=== PATIENT | female | born 1990 | race American Indian/Alaskan Native ===

== ENCOUNTER 2016-10-30 15:03 | Inpatient (IN) | payer OTHER ==
[~2016-10-30] VITALS: Ht 157.5 cm; Wt 75.1 kg
[2016-10-30 16:12] LABS: MEAN CORPUSCULAR HEMOGLOBIN 28.5 pg (27.0-33.0); MEAN CORPUSCULAR HGB CONC 33.9 g/dl (32.0-36.5); RED CELL DISTRIBUTION WIDTH 12.2 % (11.5-14.5); WHITE BLOOD COUNT 8.5 K/mm3 (4.0-10.0)
[2016-10-30 16:15] LABS: AMPHETAMINES LEVEL URINE NEGATIVE (NEGATIVE); BENZODIAZEPINES URINE NEGATIVE (NEGATIVE); COCAINE METABOLITE URINE NEGATIVE (NEGATIVE); CONTROL LINE INT CTR LINE PRESENT; METHADONE URINE NEGATIVE (NEGATIVE); OPIATES URINE NEGATIVE (NEGATIVE); TRICYCLIC ANTIDEPRESS URINE NEGATIVE (NEGATIVE)
[2016-10-30 16:29] LABS: CONTROL LINE HCG INT CTR LINE PRESENT
[2016-10-30 16:40] LABS: ALBUMIN/GLOBULIN RATIO 1.08 (1.00-1.93); ALKALINE PHOSPHATASE 93 U/L (45-117); ALT/SGPT 76 U/L (12-78); ANION GAP 7 MEQ/L (8-16); AST/SGOT 28 U/L (15-37); BILIRUBIN,DIRECT < 0.1 MG/DL (0.0-0.2); BILIRUBIN,TOTAL 0.3 MG/DL (0.2-1.0); BLOOD UREA NITROGEN 10 MG/DL (7-18); CALCIUM LEVEL 8.1 MG/DL (8.5-10.1); CARBON DIOXIDE LEVEL 29 MEQ/L (21-32); CHLORIDE LEVEL 103 MEQ/L (98-107); CREATININE FOR GFR 0.62 MG/DL (0.55-1.02); GLOMERULAR FILTRATION RATE > 60.0 (>60); GLUCOSE, FASTING 93 MG/DL (70-105); POTASSIUM SERUM 4.2 MEQ/L (3.5-5.1); SODIUM LEVEL 139 MEQ/L (136-145); TOTAL PROTEIN 7.7 GM/DL (6.4-8.2)
--- NOTE | 2016-10-31 00:41 | EDDOCDS ---
Physician Documentation [facility] Name: Carola Parekh Age: 26 yrs Sex: Female : 1990 Arrival Date: 10/30/2016 Time: 15:03 Bed OBSERVATION Private MD: Disposition: 10/30/16 21:18 Hospitalization ordered by Santos Rouse for Inpatient Admission. Preliminary diagnosis is Major depressive disorder, recurrent. - Bed requested for Admit. - Status is Inpatient Admission. ld5 - Condition is Stable. - Problem is an ongoing problem. - Symptoms are unchanged. HPI: 10/30 15:23 This 26 yrs old Female presents to ER via Walkin/Carried/Asstd with complaints of Psych Problem. 15:23 The history is obtained from the patient, transfer records. The patient presents to the emergency department with suicidal ideation, depression. At their worst, the symptoms were moderate. In the emergency department, the symptoms are mild. She has been having a hard time dealing with a friend's , who recently committed suicide. She was seen at [facility] and admitted to [facility] and was sent here for evaluation. She is very upset and is wanting to leave the ED. She admits to depression and [facility] no [facility] and does not want to . The patient has not experienced similar symptoms in the past. The patient has not recently seen a physician. Historical: - Allergies: no known allergies; - Home Meds: 1. none - PMHx: none; - PSHx: none; - The history from nurses notes was reviewed: and I agree with what is documented. - Social history: Smoking status: Patient states was never smoker of tobacco. No barriers to communication noted, The patient speaks fluent [place]. - : The pt / caregiver states he / she is not on anticoagulants. Home medication list is obtained from the patient. - Hospitalizations: : No recent hospitalization is reported. - Exposure Risk Screening:: None identified. - Immunization history:: All immunizations up-to-date. - Family history: Not pertinent. - Social history:: the patient is a non-smoker, the patient drinks alcohol, socially. 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 The psychiatric and neurological components pc are also addressed in the HPI. Exam: 15:23 General Appearance: alert, no acute distress. pc 15:23 ENT: ear, nose and throat normal, pharynx normal. 15:23 Eyes: pupils equal, round and reactive to light, extraocular motions intact. 15:23 Neck: The exam reveals no acute abnormalities. ROM is normal and painless. No nuchal rigidity is noted.. 15:23 Respiratory: breathing is even and unlabored, breath sounds are normal. 15:23 Cardiovascular: regular pulse rate, regular heart rhythm, normal heart sounds, equal and full pulses bilaterally. 15:23 Abdomen: soft, non-tender, no organomegaly, normal bowel sounds. 15:23 Skin: skin color is normal, warm, dry. 15:23 Extremities: The extremities have a grossly normal appearance, are non-tender, without acute ROM abnormalities. 15:23 Neuro: alert, oriented to person, place and time, cranial nerves normal as tested, no motor deficits, no sensory deficits. 15:23 Psych: mood is depressed, angry, affect is flat. Vital Signs: 15:08 BP 128 / 89; Pulse 87; Resp 18; Temp 96.8; Pulse Ox 98% on R/A; Weight 69.85 kg / mk4 153.99 lbs; Height 5 ft. 2 in. (157.48 cm); 18:48 BP 147 / 89; Pulse 78; Resp 18; Temp 97.7(O); Pulse Ox 99% on R/A; nb2 10/31 00:38 BP 121 / 67; Pulse 89; Resp 16; Temp 96.9; Pulse Ox 100% on R/A; Pain 0/10; ld5 10/30 15:08 Body Mass Index 28.17 (69.85 kg, 157.48 cm) mk4 MDM: 10/30 15:23 Consult PFS/PSA/[employer] Ax Consultant: Patient's case requires discussion with on-call pc Psychiatrist ordered. 15:23 PSA/PFS to call Nursing Lead Javascript Engineer, to enter patient data on [place] Safe Act if patient pc involuntarily admitted or transferred for SI or HI ordered. 15:23 Confirm accurate psychiatric medication list and times of last dosage ordered. pc 15:23 Detain Pt Until Medically/PFS Cleared ordered. pc 15:23 Differential diagnosis: depression, suicidal ideation, adjustment disorder. Plan: labs, pc PFS eval. 15:24 Acetaminophen Level Ordered. EDMS 15:24 Basic Metabolic Profile Ordered. EDMS 15:24 Complete Blood Count Ordered. EDMS 15:24 Drug Eval Toxicology ED Only Ordered. EDMS 15:24 Ethyl Alcohol (ethanol) Ordered. EDMS 15:24 HCG,Serum Qualitative Ordered. EDMS 15:24 Liver Profile Ordered. EDMS 15:24 Salicylate Level Ordered. EDMS 15:24 Thyroid Stimulating Hormone Ordered. EDMS 16:49 Acetaminophen Level Reviewed. pc 16:49 Basic Metabolic Profile Reviewed. pc 16:49 Ethyl Alcohol (ethanol) Reviewed. pc 16:49 Liver Profile Reviewed. pc 16:49 Salicylate Level Reviewed. pc 16:50 Thyroid Stimulating Hormone Reviewed. pc 16:50 Complete Blood Count Reviewed. pc 16:50 Drug Eval Toxicology ED Only Reviewed. pc 16:50 HCG,Serum Qualitative Reviewed. pc 17:15 Acetaminophen Level Reviewed. pc 17:15 Basic Metabolic Profile Reviewed. pc 17:15 Salicylate Level Reviewed. pc 17:15 Ethyl Alcohol (ethanol) Reviewed. pc 17:15 HCG,Serum Qualitative Reviewed. pc 17:15 Liver Profile Reviewed. pc 17:15 Thyroid Stimulating Hormone Reviewed. pc 17:17 REGULAR DIET PLASTIC JUÁREZ+DIET ordered. EDMS 18:08 Financial registration complete. gjb 18:18 [facility] [place] was scanned into [employer] and attached to record. gjb 20:14 Consult PFS/PSA/[employer] Consultant: Patient's case requires discussion with on-call jfb Psychiatrist complete. 20:14 PSA/PFS to call Nursing Lead Javascript Engineer, to enter patient data on [place] Safe Act if patient jfb involuntarily admitted or transferred for SI or HI complete. 20:40 Admit to [facility]: ordered. EDMS 21:11 [facility] Legal paperwork was scanned into [employer] and attached to record. rb 21:19 BED REQUEST+ADM ordered. EDMS Signatures: Dispatcher [employer] EDMS Armaan Higgins MD MD pc Baxter, Renee, PSA PSA rb Maria Guadalupe Stewart PSA PSA jfb Ariane Farias,RN RN ld5 Kadeem Randall DO DO cs11 Gina Nava RN RN [email or web address] Ariella Ferrera The chart was reviewed and I authenticate all verbal orders and agree with the evaluation and treatment provided.Attachments: 18:18 [facility] [place] gjb MTDD
--- NOTE | 2016-10-31 00:41 | EDDOCDS ---
Nurse's Notes [facility] Name: Carola Parekh Age: 26 yrs Sex: Female : 1990 Arrival Date: 10/30/2016 Time: 15:03 Bed OBSERVATION Private MD: Diagnosis: Major depressive disorder, recurrent Presentation: 10/30 15:05 Presenting complaint: Patient states: pt sent from [facility] for evaluation of mk4 very bad depression and suicidal thoughts.. recent suicide of very good friend 2 weeks ago which exacerbated this. Mental Health Triage Level: Level 2: The patient displays active suicidal ideations. Adult Sepsis Screening: The patient does not have new or worsening altered mentation. Patient's respiratory rate is less than 22. Systolic blood pressure is greater than 100. Patient has a qSOFA score of 0- Negative Sepsis Screen. Suicide/Homicide risk assessment- The patient admits to and/or has been reported to be having suicidal ideations. The patient reports that he/she has not been admitted to an inpatient mental health facility in the last 30 days. The patient reports that he/she does not have a recent or current history of substance abuse. The patient reports that he/she has no prior history of suicide attempt and/or organized plan. The patient reports that he/she has experienced a significant life altering event in the last 30 days. The patient reports that he/she has adequate social support. The patient reports he/she has no significant chronic medical condition(s). 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 Transition of care: patient was not received from another setting of care. 15:05 Acuity: AGUSTINA Level 3 mk4 15:05 Method Of Arrival: Walkin/Carried/Asstd mk4 Triage Assessment: 15:08 General: Appears distressed, Behavior is flat. Pain: Denies pain. HIV screening NA for mk4 this visit Offered previously. 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 none - PMHx: none; - PSHx: none; - The history from nurses notes was reviewed: and I agree with what is documented. - Social history: Smoking status: Patient states was never smoker of tobacco. No barriers to communication noted, The patient speaks fluent Bruneian. - : The pt / caregiver states he / she is not on anticoagulants. Home medication list is obtained from the patient. - Hospitalizations: : No recent hospitalization is reported. - Exposure Risk Screening:: None identified. - Immunization history:: All immunizations up-to-date. - Family history: Not pertinent. - Social history:: the patient is a non-smoker, the patient drinks alcohol, socially. Screenin:36 Screening information is obtained from the patient. Fall risk: No risks identified. ttb Assistance ADL's: requires no assistance with activities of daily living. Abuse/DV Screen: The patient / caregiver reports he/she is: not in a situation that causes fear, pain or injury. Nutritional screening: No deficits noted. Advance Directives: Currently, there is no health care proxy. home support is adequate. Assessment: 15:11 General: Appears distressed, Behavior is anxious, flat. Pain: Denies pain. mk4 Neurological: Level of Consciousness is awake, alert, Oriented to person, place, time. Respiratory: Airway is patent Respiratory effort is even. Derm: Skin. 15:57 General: Appears in no apparent distress, Behavior is cooperative, quiet. General: dwg Awake and alert, calm and cooperative.. Pain: Denies pain. Neurological: Level of Consciousness is awake, alert, Oriented to person, place, time. 16:36 General: Appears in no apparent distress, comfortable, Behavior is quiet. General: ttb chain of command at bedside. . Neurological: Level of Consciousness is awake, alert. Respiratory: Airway is patent Respiratory effort is even, unlabored, Respiratory pattern is regular, symmetrical. Derm: Skin is normal. 17:30 General: Appears in no apparent distress, to be sleeping. ttb 17:30 Respiratory: Airway is patent. ttb 18:30 Reassessment: Patient appears in no apparent distress at this time. pt tolerated ttb dinner. Resting in room.. 19:01 General: report given to WILLIAMS Young at this time.. ttb 20:00 General: Appears in no apparent distress, comfortable, Behavior is appropriate for age, rw1 cooperative, quiet. Pain: Denies pain. Neurological: Level of Consciousness is awake, alert, obeys commands, Oriented to person, place, time. Respiratory: Airway is patent Respiratory effort is even, unlabored. Derm: Skin is normal. 21:01 Reassessment: Patient appears in no apparent distress at this time. resting quietly on rw1 stretcher, safety maintained will monitor.. 10/31 00:38 General: Appears in no apparent distress, Behavior is appropriate for age, cooperative. ld5 Pain: Denies pain. Neurological: Level of Consciousness is awake, obeys commands. Respiratory: Airway is patent Respiratory effort is even, unlabored. 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 [facility] Behavioral Health: The patient is not an established patient of [facility] Behavioral Health. Referral Information: Evaluation referral is generated by PT's Chain of Command. 20:34 Referral Information: The patient was referred for evaluation because PT +depression jfb with SI. Subjective: The patients chief complaint is PT states she is experiencing "crushing depression" currently with vague SI, no plan. PT's co worker and good friend killed himself over a month ago and she is having a difficult time with her grieving. PT also had a one night stand a few weeks ago and then she took several test and believed she was . Last night she repeated the tests and now feels she has miscarried. PT feels that she is treated in a bad way by her VIPIN and today he had her remove all of her things from her room, buff her floors and then put everything back in place and "I snapped" meaning she started screaming and crying and demanded to speak with the Alana. PT's Alana spent time with PT and then he brought her to be seen as a walk in at [facility] who in turn sent her here for MHE. PT denies she made any direct statements of self harm but admits to sharing that she has had thoughts "I can't take it anymore. I'm tired and don't want to do this anymore" Per the Alana who arrived to support PT he has known her since [place] and she has always struggled with managing her depression and he is concerned that she believed she was and lost the baby. Alana has discussed admission with PT and he is a buffer between her and the VIPIN who is also present and states he has no idea what he has done to upset PT so much. PT tearful and unable to CFS with confidence. . Delusions are denied. Patient's mood is depressed, Hallucinations are denied. Mental Health history: depression, suicide at age 16 PT sat with a knife and thought about cutting her wrists Mental Health Admissions: None. Current Outpatient Mental Health Services: Therapist / Agency: [facility] Dr. Gar. Current living environment is The patient currently lives in a [employer] [facility]. Patient presents to Emergency Department with the following symptoms within the past 2 weeks: increased appetite, depressed mood, feelings of helplessness/hopelessness, poor concentration, sleep disturbance - erratic suicidal ideation with no plan. Substance abuse: Pt denies. Mental status exam: Patients appearance is appropriate, Patient's behavior is cooperative, Speech is normal. Affect is flat. Mood is depressed. Hallucinations are denied. Appetite is characterized by binges. Memory is good. Energy level is normal. Content of thought is depressed Thought process is intact. Cognitive level is oriented to person, place, time and situation Patient's insight is fair. Judgement is fair. Rapport with interviewer is good. Suicidal Ideation is present with no specific plan. Homicidal ideation is not present. Disposition: Medically cleared for disposition by Kadeem Randall DO Psychiatric Consult is performed by phone with Dr Santos Rouse. [facility] Admission Criteria: The patient is experiencing suicidal ideation. The patient requires continuous observation and/or control to protect self, others or property. The patient's care requires a multi-modal treatment plan under close supervision and coordination due to the complexity and severity of the patient's symptoms. Legal Status: Patient's legal status will be Emergency admission: 939. DSM-V Differential Diagnosis: Unspecified Depressive Disorder (F32.9). Insurance Pre-Certification: Not Required, . Awaiting: transfer to [facility]. Vital Signs: 15:08 BP 128 / 89; Pulse 87; Resp 18; Temp 96.8; Pulse Ox 98% on R/A; Weight 69.85 kg; Height mk4 5 ft. 2 in. (157.48 cm); 18:48 BP 147 / 89; Pulse 78; Resp 18; Temp 97.7(O); Pulse Ox 99% on R/A; nb2 10/31 00:38 BP 121 / 67; Pulse 89; Resp 16; Temp 96.9; Pulse Ox 100% on R/A; Pain 0/10; ld5 10/30 15:08 Body Mass Index 28.17 (69.85 kg, 157.48 cm) mk4 ED Course: 10/30 15:04 Patient visited by Melida Haider, Reg. lg 15:04 Patient moved to [facility] lg 15:05 Armaan Higgins MD is Attending Physician. pc 15:05 Patient [address] 15:08 Triage Initiated 4 15:20 Patient has correct armband on for positive identification. Placed in gown. Placed in tmm1 psych safe attire. Bed in low position. Side rails up X 1. Security observing. Property removed, inventory done, secured in belongings bag- placed in locked locker. Door closed. Noise minimized. Visitors limited. Psych Safety Check: Location: Psych Room. Visual Assessment: Cooperative. 15:23 Patient visited by Armaan Higgins MD. pc 15:30 Psych Safety Check: Location: Psych Room. Visual Assessment: Cooperative. tmm1 15:45 Psych Safety Check: Location: Psych Room. Visual Assessment: Cooperative. tmm1 15:56 Acetaminophen Level Sent. dwg 15:56 Basic Metabolic Profile Sent. dwg 15:57 Complete Blood Count Sent. dwg 15:57 Drug Eval Toxicology ED Only Sent. dwg 15:57 Ethyl Alcohol (ethanol) Sent. dwg 15:57 HCG,Serum Qualitative Sent. dwg 15:57 Liver Profile Sent. dwg 15:57 Salicylate Level Sent. dwg 15:57 Thyroid Stimulating Hormone Sent. dwg 15:58 Patient visited by Paul Perez RN. dwg 16:00 Psych Safety Check: Location: Psych Room. Visual Assessment: Cooperative. tmm1 16:15 Psych Safety Check: Location: Psych Room. Visual Assessment: Cooperative. tmm1 16:30 Psych Safety Check: Location: Psych Room. Visual Assessment: Cooperative. tmm1 16:35 Patient visited by Ellie Zimmer RN. ttb 16:36 The patient / caregiver is instructed regarding the plan of care and ED course. ttb Accompanied by VIPIN, Patient has correct armband on for positive identification. Placed in psych safe attire. Security observing. 16:36 No IV's were initiated during this patient's visit. No procedures done that require ttb assistance. Labs drawn. (by ED staff). Urine collected. Clean catch specimen. 16:37 Patient visited by Ellie Zimmer RN. ttb 16:45 Psych Safety Check: Location: Psych Room. Visual Assessment: Cooperative. tmm1 17:00 Psych Safety Check: Location: Psych Room. Visual Assessment: Cooperative. tmm1 17:15 Psych Safety Check: Location: Medical Room. Visual Assessment: Cooperative. tmm1 17:16 Patient visited by Ellie Zimmer RN. ttb 17:30 Psych Safety Check: Location: Psych Room. Visual Assessment:. tmm1 17:30 Security observing. ttb 17:39 Patient visited by Mima Rosales PCA. tmm1 17:45 Psych Safety Check: Location: Psych Room. Visual Assessment: Cooperative. tmm1 17:57 Patient visited by Mima Rosales PCA. tmm1 18:00 Psych Safety Check: Location: Psych Room. Visual Assessment: Cooperative. tmm1 18:14 Psych Safety Check: Location: Psych Room. Visual Assessment: Cooperative. tmm1 18:15 Patient visited by Mima Rosales PCA. tmm1 18:18 [facility] Payment Agreement was scanned into [employer] the [employer] and attached to record. gjb 18:30 Psych Safety Check: Location: Psych Room. Visual Assessment: Cooperative. tmm1 18:30 Security observing. ttb 18:36 Patient visited by Mima Rosales PCA. tmm1 18:45 Psych Safety Check: Location: Psych Room. Visual Assessment: Cooperative. tmm1 18:48 Patient visited by Kelsi Sal. nb2 18:58 Attending Physician role handed off by Armaan Higgins MD cs11 18:58 Kadeem Randall DO is Attending Physician. cs11 18:58 Santiago Howard LPN is Primary Nurse. rw1 18:58 Patient moved to OBSERVATION cs11 19:01 Patient visited by Mima Rosales PCA. tmm1 19:01 Psych Safety Check: Location: Psych Room. Visual Assessment: Cooperative. tmm1 19:15 Psych Safety Check: Location: Psych Room. Visual Assessment: Cooperative. tmm1 19:32 Psych Safety Check: Location: Psych Room. Visual Assessment: Cooperative. tmm1 19:46 Psych Safety Check: Location: Psych Room. Visual Assessment: Cooperative. tmm1 20:03 Psych Safety Check: Location: Psych Room. Visual Assessment: Cooperative. tmm1 20:05 Psych Safety Check: Location:. tmm1 20:30 Psych Safety Check: Location: Psych Room. Visual Assessment: Cooperative. tmm1 20:40 Patient visited by Santiago Howard LPN. rw1 20:45 Psych Safety Check: Location: Psych Room. Visual Assessment: Cooperative. tmm1 21:00 Psych Safety Check: Location: Psych Room. Visual Assessment: Cooperative. tmm1 21:02 Patient visited by Santiago Howard LPN. rw1 21:11 [facility] Legal paperwork was scanned into [employer] the [employer] and attached to record. rb 21:15 Psych Safety Check: Location: Psych Room. Visual Assessment: Cooperative. tmm1 21:16 Patient visited by Santiago Howard LPN. rw1 21:17 Santos Rouse is Hospitalizing Provider. cs11 21:30 Psych Safety Check: Location: Psych Room. Visual Assessment: Cooperative. tmm1 21:45 Psych Safety Check: Location: Psych Room. Visual Assessment: Cooperative. tmm1 21:59 Psych Safety Check: Location: Psych Room. Visual Assessment: Cooperative. tmm1 22:15 Psych Safety Check: Location: Psych Room. Visual Assessment: Cooperative. tmm1 22:30 Psych Safety Check: Location: Psych Room. Visual Assessment: Cooperative. tmm1 22:44 Psych Safety Check: Location: Psych Room. Visual Assessment: Cooperative. tmm1 22:52 Psych Safety Check: Location: Psych Room. Visual Assessment: Cooperative. tmm1 23:00 Psych Safety Check: Location: Psych Room. Visual Assessment: Cooperative. tr 23:16 Patient visited by Mychal Gamez. tr 23:49 Patient visited by Mychal Gamez. tr 10/31 00:03 Patient visited by Mychal Gamez. tr 00:14 Patient visited by Mychal Gamez. tr 00:33 Patient visited by Mychal Gamez. tr 00:40 Patient visited by Ariane Farias RN. ld5 Attachments: 21:11 [facility] Legal paperwork rb Order Results: Lab Order: Acetaminophen Level; SPEC'M 10/30/16 15:51 Test: ACETAMINOPHEN LEVEL; Value: < 2.0; Range: 10.0-30.0; Abnormal: Below low normal; Units: UG/ML; Status: F Lab Order: Basic Metabolic Profile; SPEC'M 10/30/16 15:51 Test: GLUCOSE, FASTING; Value: 93; Range: 70-105; Units: MG/DL; Status: F Test: BLOOD UREA NITROGEN; Value: 10; Range: 7-18; Units: MG/DL; Status: F Test: CREATININE FOR GFR; Value: 0.62; Range: 0.55-1.02; Units: MG/DL; Status: F Test: SODIUM LEVEL; Range: 136-145; Units: MEQ/L; Status: I Test: POTASSIUM SERUM; Range: 3.5-5.1; Units: MEQ/L; Status: I Test: CHLORIDE LEVEL; Range: 98-107; Units: MEQ/L; Status: I Test: CARBON DIOXIDE LEVEL; Range: 21-32; Units: MEQ/L; Status: I Test: ANION GAP; Range: 8-16; Units: MEQ/L; Status: I Test: CALCIUM LEVEL; Range: 8.5-10.1; Units: MG/DL; Status: I Test: GLOMERULAR FILTRATION RATE; Value: > 60.0; Range: >60; Status: F Test: SODIUM LEVEL; Value: 139; Range: 136-145; Units: MEQ/L; Status: F Test: POTASSIUM SERUM; Value: 4.2; Range: 3.5-5.1; Units: MEQ/L; Status: F Test: CHLORIDE LEVEL; Value: 103; Range: 98-107; Units: MEQ/L; Status: F Test: CARBON DIOXIDE LEVEL; Value: 29; Range: 21-32; Units: MEQ/L; Status: F Test: ANION GAP; Value: 7; Range: 8-16; Abnormal: Below low normal; Units: MEQ/L; Status: F Test: CALCIUM LEVEL; Value: 8.1; Range: 8.5-10.1; Abnormal: Below low normal; Units: MG/DL; Status: F Test Note: ; Units are mL/min/1.73 m2 Chronic Kidney Disease Staging per NKF: Stage I & II GFR >=60 Normal to Mildly Decreased Stage III GFR 30-59 Moderately Decreased Stage IV GFR 15-29 Severely Decreased Stage V GFR <15 Very Little GFR Left ESRD GFR <15 on DUST COLLECTOR Lab Order: Complete Blood Count; SPEC'M 10/30/16 15:51 Test: WHITE BLOOD COUNT; Value: 8.5; Range: 4.0-10.0; Units: K/mm3; Status: F Test: RED BLOOD COUNT; Value: 4.97; Range: 4.00-5.40; Units: M/mm3; Status: F Test: HEMOGLOBIN; Value: 14.2; Range: 12.0-16.0; Units: g/dl; Status: F Test: HEMATOCRIT; Value: 41.8; Range: 36.0-47.0; Units: %; Status: F Test: MEAN CORPUSCULAR VOLUME; Value: 84.0; Range: 80.0-96.0; Units: fl; Status: F Test: MEAN CORPUSCULAR HEMOGLOBIN; Value: 28.5; Range: 27.0-33.0; Units: pg; Status: F Test: MEAN CORPUSCULAR HGB CONC; Value: 33.9; Range: 32.0-36.5; Units: g/dl; Status: F Test: RED CELL DISTRIBUTION WIDTH; Value: 12.2; Range: 11.5-14.5; Units: %; Status: F Test: PLATELET COUNT, AUTOMATED; Value: 318; Range: 150-450; Units: k/mm3; Status: F Lab Order: Drug Eval Toxicology ED Only; SPEC'M 10/30/16 15:51 Test: AMPHETAMINES LEVEL URINE; Value: NEGATIVE; Range: NEGATIVE; Status: F Test: BARBITURATES URINE; Value: NEGATIVE; Range: NEGATIVE; Status: F Test: BENZODIAZEPINES URINE; Value: NEGATIVE; Range: NEGATIVE; Status: F Test: CANNABINOIDS URINE; Value: NEGATIVE; Range: NEGATIVE; Status: F Test: COCAINE METABOLITE URINE; Value: NEGATIVE; Range: NEGATIVE; Status: F Test: METHADONE URINE; Value: NEGATIVE; Range: NEGATIVE; Status: F Test: OPIATES URINE; Value: NEGATIVE; Range: NEGATIVE; Status: F Test: TRICYCLIC ANTIDEPRESS URINE; Value: NEGATIVE; Range: NEGATIVE; Status: F Test Note: ; ALL PRESUMPTIVE POSITIVE FINDINGS ARE UNCONFIRMED NORMAL VALUES THRESHOLD IN NG/ML AMPHETAMINES 1000 METHAMPHETAMINES 1000 BARBITURATES 300 BENZODIAZEPINES 300 CANNABINOIDS (THC) 50 COCAINE METABOLITE 300 METHADONE 300 OPIATES 300 PHENCYCLIDINE 25 TRICYCLIC ANTIDEPRESSANTS 1000 RESULTS ARE FOR MEDICAL PURPOSES ONLY. ALL URINE SPECIMENS WILL BE SAVED FOR 3 DAYS. IF CONFIRMATION OF A PRESUMPTIVE POSTIVE SCREEN RESULT IS DESIRED, CALL CHEMISTRY ([phone]) AND REQUEST URINE TO BE SENT TO REFERENCE LAB. FOR A LIST OF CLOSELY RELATED COMPOUNDS PLEASE CALL THE LAB. Lab Order: Ethyl Alcohol (ethanol); SPEC'M 10/30/16 15:51 Test: ETHYL ALCOHOL (ETHANOL); Value: < 0.003; Range: 0.000-0.010; Units: %; Status: F Lab Order: HCG,Serum Qualitative; SPEC'M 10/30/16 15:51 Test: HCG, SERUM QUALITATIVE; Value: NEGATIVE; Range: NEGATIVE; Status: F Lab Order: Liver Profile; SPEC' 10/30/16 15:51 Test: AST/SGOT; Value: 28; Range: 15-37; Units: U/L; Status: F Test: ALT/SGPT; Value: 76; Range: 12-78; Units: U/L; Status: F Test: ALKALINE PHOSPHATASE; Value: 93; Range: 45-117; Units: U/L; Status: F Test: BILIRUBIN,TOTAL; Value: 0.3; Range: 0.2-1.0; Units: MG/DL; Status: F Test: BILIRUBIN,DIRECT; Value: < 0.1; Range: 0.0-0.2; Units: MG/DL; Status: F Test: TOTAL PROTEIN; Value: 7.7; Range: 6.4-8.2; Units: GM/DL; Status: F Test: ALBUMIN; Value: 4.0; Range: 3.2-5.2; Units: GM/DL; Status: F Test: ALBUMIN/GLOBULIN RATIO; Value: 1.08; Range: 1.00-1.93; Status: F Lab Order: Salicylate Level; SPEC' 10/30/16 15:51 Test: SALICYLATE LEVEL; Value: < 1.7; Range: 5.0-30.0; Abnormal: Below low normal; Units: MG/DL; Status: F Lab Order: Thyroid Stimulating Hormone; SPEC' 10/30/16 15:51 Test: THYROID STIMULATING HORMONE; Value: 1.350; Range: 0.358-3.740; Units: uIU/ML; Status: F Outcome: 21:18 Decision to Hospitalize by Provider. cs11 10/31 00:38 Discharge Assessment: Patient awake, alert and oriented x 3. No cognitive and/or ld5 functional deficits noted. Patient verbalized understanding of disposition instructions. Patient patient administered narcotics - no. The following High Risk Discharge criteria are identified: Yes, [facility] admission. Admitted to Psych accompanied by tech, via wheelchair, with chart. Condition: stable. No special radiology studies were completed. 00:40 Patient left the ED. ld5 Signatures: Armaan Higgins MD MD pc Greene, Daniel, RN RN dwg Adonis, Aury, PSA PSA rb Melida Haider, Reg Reg lg Gamez, Mychal tr Lee,Santiago,ALINING INSPECTOR ALINING INSPECTOR rw1 Maria Guadalupe Stewart, PSA PSA Ariane Siddiqui,RN RN ld5 Kadeem Randall, DO cs11 Ellie Zimmer RN RN ttb Connie, Mima, PALEOLOGY PROFESSOR PALEOLOGY PROFESSOR tmm1 Gina Nava, RN RN mk4 Ariella Ferrera Nicole nb2 MTDD
[2016-10-31 00:51] VITALS: BP 134/95
[2016-10-31] MEDS ORDERED: ACETAMINOPHEN TAB 650MG DOSE (2X325MG) PO PRN (02:45)
[2016-10-31] MEDS ORDERED: LORazepam 1 MG TAB PO PRN (02:45)
[2016-10-31] MEDS ORDERED: MAALOX 30 ML SUSP *UDC PO PRN (02:45)
[2016-10-31] MEDS ORDERED: MOM 30ML SUSPENSION UDC PO PRN (02:45)
--- NOTE | 2016-10-31 11:50 | HPEPDOC ---
Medical History and Physical Date of Admission Oct 31, 2016 at 00:47 History and Physical PCP: [facility] ATTENDING: Dr. Silas Haque HPI: 26yoF admitted to [facility] for MDD, being medically examined today. No acute medical complaints today. Denies any fevers, chills, weakness, fatigue, RASMUSSEN, CP, SOB, cough, palpitations, abdominal pain, N/V/D or changes in bowel or bladder habits. 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 ROS: As noted in HPI, otherwise 11pt ROS of systems reviewed and remarkable only for LMP 10/05/16 PE: GEN: 26 yoF, appears stated age. Well-nourished, well developed. No acute distress. Alert and oriented x 3. Pleasant, interactive. HEENT: Normocephalic, atraumatic. Pupils are equal, round, and reactive to light. Extraocular movements are intact. No nystagmus appreciated. Sclera are nonicteric. Conjunctiva without injection. Nose midline. Nasal turbinates without bogginess. EACs both patent BL. TMs both visualized and harrison with good cone of light, no bulging or erythema. No facial asymmetry. Moist mucous membranes. Dentition fair. Pharynx pink and moist, no cobblestoning. Neck supple , trachea midline. No lymphadenopathy or thyromegaly appreciated. CHEST: Regular rate and rhythm, +S1, +S2 LUNGS: Clear to auscultation bilaterally. No wheezes, rales, or rhonchi. Breathing appears symmetric and easy. Patient is speaking in full sentences. No accessory muscle use. ABD: Round, soft, non-tender, non-distended. +Bowel sounds throughout. No rebound or guarding. No costovertebral angle tenderness. EXT: Pulses 2+ bilaterally dorsalis pedis and radial. No lower extremity edema appreciated. SKIN: [place], dry, warm. Capillary refill <2sec. No rashes. NEURO: Alert and oriented x 3. Cranial nerves III-XII are intact. No focal deficits appreciated. EKG: pending A&P: 26yoF admitted to [facility] for MDD 1. Psych. Plan per Psychiatry. Obtain baseline EKG to assure the safety of psychiatric medications as they can prolong the QT interval. 2. Chronic right knee and left foot pain. Patient states she follows with orthopedics at [place]. She has had imaging in the past including MRI. Continue with outpatient follow-up. Tylenol as needed. 3. Follow up with PCP on discharge. [facility]. 4. Staff member present at exam, Susan JIANG. Vital Signs Vital Signs Label Value Date Time Patient Temperature 98.6 degrees F 10/31/1650 Temperature Source Tympanic 10/31/1650 Pulse 75 10/31/1650 Respiratory Rate 16 bpm 10/31/1650 Blood Pressure Assessment 134/95 (108) 10/31/1650 Laboratory Data Labs 24H Laboratory Tests 2 10/30/16 15:51: Acetaminophen Level < 2.0L, Aspartate Amino Transf (AST/SGOT) 28, Alanine Aminotransferase (ALT/SGPT) 76, Alkaline Phosphatase 93, Total Bilirubin 0.3, Direct Bilirubin < 0.1, Albumin 4.0, Albumin/Globulin Ratio 1.08, Anion Gap 7L, Calcium Level 8.1L, Ethyl Alcohol Level < 0.003, Glomerular Filtration Rate > 60.0, Human Chorionic Gonadotropin, Qual NEGATIVE, Salicylates Level < 1.7L, Thyroid Stimulating Hormone (TSH) 1.350, Total Protein 7.7, Urine Amphetamine Level NEGATIVE, Urine Benzodiazepines Screen NEGATIVE, Urine Cannabinoids NEGATIVE, Urine Cocaine Metabolite NEGATIVE, Urine Opiates Screen NEGATIVE, Urine Barbiturates, Qualitative NEGATIVE, Urine Methadone Screen NEGATIVE, Urine Tricyclic Antidepressants NEGATIVE CBC/BMP Laboratory Tests 10/30/16 15:51 Red Blood Count 4.97, Mean Corpuscular Volume 84.0, Mean Corpuscular Hemoglobin 28.5, Mean Corpuscular Hemoglobin Concent 33.9, Red Cell Distribution Width 12.2 Home Medications No Active Prescriptions or Reported Meds Allergies Coded Allergies: No Known Allergies (Unverified , 10/30/16) Carin Ackerman Oct 31, 2016 11:50
[2016-10-31 18:00] VITALS: BP 121/80
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
[2016-11-01 07:00] VITALS: BP 104/70
--- NOTE | 2016-11-01 09:10 | ECGEPIP ---
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
[2016-11-01 13:47] VITALS: BP_SYST 115; BP_SYST 119; BP_DIAS 67; BP_DIAS 68
[2016-11-01 18:00] VITALS: BP 141/68
--- NOTE | 2016-11-01 18:08 | IPNPDOC ---
[facility] Progress Note Progress Note DATE OF SERVICE: 11/01/16 HISTORY: Patient is adjusting to unit, has been visible and attending unit activities, is now engaging with select peers and indicates she finds interactions with staff and grew programming helpful. Patient reports low level anxiety, low level depression, denies suicidal and homicidal ideation, denies audiovisual hallucinations, and denies urge to engage in self-injurious behavior. Patient reports ongoing challenges related to sleep latency, is aware she has medication available to her, indicates he is not interested in taking medication for sleep at this time. Patient reports stable appetite, reports challenges with concentration and focus, indicates energy level is improving. Patient denies symptoms of panic, irritability or mood lability, appears somewhat less emotionally distant today, remains unable to comment on grief she is experiencing. Medication options were again reviewed with patient who, today , is receptive to medication trial in effort to reduce symptoms of anxiety and depression, adds she is not interested in taking medication that will cause weight gain. Vp Director Of Creative Strategy reviewed potential medication side effects, including possibility of weight gain, and patient makes requests for Wellbutrin XL medication trial. 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 VITAL SIGNS: See below. NEW TEST RESULTS: No new lab results. Recent loss of , lump in left breast, chronic pain to right knee. Lab results on admission indicate low anion gap and calcium. HCG negative on admission UDS negative on admission 10/31/16 EKG results Normal sinus rhythm Nonspecific T-wave abnormalities. No prior tracing for comparison. Clinical correlation advised, will ask PA to evaluate CURRENT MEDICATIONS: See below. 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 Speech: Is of normal rate, rhythm, volume, coherent and spontaneous Language skills are intact. Thought processes: Clear, goal-directed. Thought content: Rational, logical, no indication of paranoia. Abstract reasoning, and computation: Unable to assess. Description of associations: Intact. Description of abnormal or psychotic thoughts: denies hallucinations, delusions , preoccupation with violence, homicidal or suicidal ideation, and obsessions Judgment: Fair. Insight: Fair, some improvement Orientation to time, place and person. Recent and remote memory: Intact Attention span and concentration: Within normal limits. Language: Normal. Fund of knowledge: Adequate. Mood: "Better." Appears less anxious, is less irritable, continues to appear depressed, no mood lability noted. Affect: Constricted, and brightens 2, congruent with mood. DIAGNOSES: Adjustment disorder with mixed anxiety and depressed mood, bereavement, ADHD by history (pt report), rule out MDD ASSESSMENT: Patient has been visible on unit, attending groups, indicates unit programming is helpful in helping her develop new coping mechanisms. Patient is today requesting medication trial to address symptoms of depression, anxiety, is requesting medication with reduced likelihood of causing weight gain. Patient denies current suicidal and homicidal ideation and verbalizes understanding of how to access supportive services on unit if needed. Will initiate Wellbutrin XL 150 mg po q am in effort to reduce symptoms of anxiety and depression. Will monitor patient's response to medication and side effects. Will also continue to monitor patient's response to the inpatient environment, patient's safety, resolution of suicidal ideation, and discharge readiness. Patient reiterates today when ready, she desires discharge back to [facility], today informs senior mortgage underwriter that though she does not want to participate in outpatient behavioral health services, she understands that attending psychotherapy is "in my best interest." MANAGEMENT PLAN: Initiate med trial Wellbutrin XL 150 mg po q am. Patient remains aware she has trazodone available to her for sleep as needed Maintain safety precautions Patient to attend groups and participate in unit programming to develop coping strategies Engage patient in discharge planning process and arrange meeting with command to evaluate safe discharge planning when appropriate Recommend comprehensive ADHD diagnostic testing upon return to [facility] Patient to follow up with [facility] upon discharge TIME SPENT: 35 minutes Vital Signs Vital Signs Date Time Temp Pulse Resp B/P Pulse Ox O2 Delivery O2 Flow Rate FiO2 11/01/16 13:47 98.3 71 16 115/68 Current Medications Current Medications Acetaminophen (Tylenol Tab) 650 mg Q6HP PRN PO HEADACHE or DISCOMFORT; Start at 02:45; Stop 11/30/16 at 02:44 Al Hydrox/Mg Hydrox/Simethicone (Mylanta) 30 ml Q4HP PRN PO HEARTBURN/ INDIGESTION; Start 10/31/16 at 02:45; Stop 11/30/16 at 02:44 Home Med (Med Rec Complete!) ASDIRECTED XX ; Start 10/30/16 at 21:45; Stop at 00:54; Status DC Hydroxyzine HCl (Atarax) 50 mg Q6HP PRN PO anxiety; Start 10/31/16 at 19:15; Stop 11/30/16 at 19:14 Lorazepam (Ativan) 1 mg Q6HP PRN PO ANXIETY; Start 10/31/16 at 02:45; Stop at 19:04; Status DC Magnesium Hydroxide (Milk Of Magnesia) 30 ml DAILYPRN PRN PO CONSTIPATION; Start 10/31/16 at 02:45; Stop 11/30/16 at 02:44 Trazodone HCl (Desyrel) 50 mg QHSP PRN PO INSOMNIA; Start 10/31/16 at 02:45; Stop 11/30/16 at 02:44 Allergies Coded Allergies: No Known Allergies (Unverified , 10/30/16) Geneva Cassidy Nov 01, 2016 18:08
[2016-11-01] MEDS: traZODone 50 MG TAB PO PRN (20:45)
--- NOTE | 2016-11-02 01:41 | EDDOCDS ---
Physician Documentation [facility] Name: Carola Parekh Age: 26 yrs Sex: Female : 1990 Arrival Date: 10/30/2016 Time: 15:03 Bed OBSERVATION Private MD: Disposition: 10/30/16 21:18 Hospitalization ordered by Santos Rouse for Inpatient Admission. Preliminary diagnosis is Major depressive disorder, recurrent. - Bed requested for Admit. - Status is Inpatient Admission. ld5 - Condition is Stable. - Problem is an ongoing problem. - Symptoms are unchanged. HPI: 10/30 15:23 This 26 yrs old Female presents to ER via Walkin/Carried/Asstd with complaints of Psych Problem. 15:23 The history is obtained from the patient, transfer records. The patient presents to the emergency department with suicidal ideation, depression. At their worst, the symptoms were moderate. In the emergency department, the symptoms are mild. She has been having a hard time dealing with a friend's , who recently committed suicide. She was seen at [facility] and admitted to [facility] and was sent here for evaluation. She is very upset and is wanting to leave the ED. She admits to depression and [facility] and does not want [facility] . The patient has not experienced similar symptoms in the past. The patient has not recently seen a physician. Historical: - Allergies: no known allergies; - Home Meds: 1. none - PMHx: none; - PSHx: none; - The history from nurses notes was reviewed: and I agree with what is documented. - Social history: Smoking status: Patient states was never smoker of tobacco. No barriers to communication noted, The patient speaks fluent Kazakh. - : The pt / caregiver states he / she is not on anticoagulants. Home medication list is obtained from the patient. - Hospitalizations: : No recent hospitalization is reported. - Exposure Risk Screening:: None identified. - Immunization history:: All immunizations up-to-date. - Family history: Not pertinent. - Social history:: the patient is a non-smoker, the patient drinks alcohol, socially. 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 The psychiatric and neurological components pc are also addressed in the HPI. Exam: 15:23 General Appearance: alert, no acute distress. pc 15:23 ENT: ear, nose and throat normal, pharynx normal. 15:23 Eyes: pupils equal, round and reactive to light, extraocular motions intact. 15:23 Neck: The exam reveals no acute abnormalities. ROM is normal and painless. No nuchal rigidity is noted.. 15:23 Respiratory: breathing is even and unlabored, breath sounds are normal. 15:23 Cardiovascular: regular pulse rate, regular heart rhythm, normal heart sounds, equal and full pulses bilaterally. 15:23 Abdomen: soft, non-tender, no organomegaly, normal bowel sounds. 15:23 Skin: skin color is normal, warm, dry. 15:23 Extremities: The extremities have a grossly normal appearance, are non-tender, without acute ROM abnormalities. 15:23 Neuro: alert, oriented to person, place and time, cranial nerves normal as tested, no motor deficits, no sensory deficits. 15:23 Psych: mood is depressed, angry, affect is flat. Vital Signs: 15:08 BP 128 / 89; Pulse 87; Resp 18; Temp 96.8; Pulse Ox 98% on R/A; Weight 69.85 kg / mk4 153.99 lbs; Height 5 ft. 2 in. (157.48 cm); 18:48 BP 147 / 89; Pulse 78; Resp 18; Temp 97.7(O); Pulse Ox 99% on R/A; nb2 10/31 00:38 BP 121 / 67; Pulse 89; Resp 16; Temp 96.9; Pulse Ox 100% on R/A; Pain 0/10; ld5 10/30 15:08 Body Mass Index 28.17 (69.85 kg, 157.48 cm) mk4 MDM: 10/30 15:23 Consult PFS/PSA/Generalist: Patient's case requires discussion with on-call pc Psychiatrist ordered. 15:23 PSA/PFS to call [employer], to enter patient data on [place] Safe Act if patient pc involuntarily admitted or transferred for SI or HI ordered. 15:23 Confirm accurate psychiatric medication list and times of last dosage ordered. pc 15:23 Detain Pt Until Medically/PFS Cleared ordered. pc 15:23 Differential diagnosis: depression, suicidal ideation, adjustment disorder. Plan: labs, pc PFS eval. 15:24 Acetaminophen Level Ordered. EDMS 15:24 Basic Metabolic Profile Ordered. EDMS 15:24 Complete Blood Count Ordered. EDMS 15:24 Drug Eval Toxicology ED Only Ordered. EDMS 15:24 Ethyl Alcohol (ethanol) Ordered. EDMS 15:24 HCG,Serum Qualitative Ordered. EDMS 15:24 Liver Profile Ordered. EDMS 15:24 Salicylate Level Ordered. EDMS 15:24 Thyroid Stimulating Hormone Ordered. EDMS 16:49 Acetaminophen Level Reviewed. pc 16:49 Basic Metabolic Profile Reviewed. pc 16:49 Ethyl Alcohol (ethanol) Reviewed. pc 16:49 Liver Profile Reviewed. pc 16:49 Salicylate Level Reviewed. pc 16:50 Thyroid Stimulating Hormone Reviewed. pc 16:50 Complete Blood Count Reviewed. pc 16:50 Drug Eval Toxicology ED Only Reviewed. pc 16:50 HCG,Serum Qualitative Reviewed. pc 17:15 Acetaminophen Level Reviewed. pc 17:15 Basic Metabolic Profile Reviewed. pc 17:15 Salicylate Level Reviewed. pc 17:15 Ethyl Alcohol (ethanol) Reviewed. pc 17:15 HCG,Serum Qualitative Reviewed. pc 17:15 Liver Profile Reviewed. pc 17:15 Thyroid Stimulating Hormone Reviewed. pc 17:17 REGULAR DIET PLASTIC JUÁREZ+DIET ordered. EDMS 18:08 Financial registration complete. gjb 18:18 [facility] [place] Agreement was scanned into [employer] and attached to record. gjb 20:14 Consult PFS/PSA/Generalist: Patient's case requires discussion with on-call jfb Psychiatrist complete. 20:14 PSA/PFS to call [employer], to enter patient data on [facility] Safe Act if patient jfb involuntarily admitted or transferred for SI or HI complete. 20:40 Admit to [facility]: ordered. EDMS 21:11 [facility] Legal paperwork was scanned into [employer] and attached to record. rb 21:19 BED REQUEST+ADM ordered. EDMS 10/31 13:23 PCR was scanned into [employer] and attached to record. gb Signatures: Dispatcher [employer] EDSC Armaan Higgins MD MD pc Baxter, Renee, PSA PSA rb Krystal Hugo, Reg Reg Maria Guadalupe Jordan, PSA PSA jfb Ariane Farias,RN RN ld5 Kadeem Randall DO DO cs11 Gina Nava RN RN [id number] Ariella Ferrera The chart was reviewed and I authenticate all verbal orders and agree with the evaluation and treatment provided.Attachments: 10/30 18:18 [facility] Payment Agreement gjb Chart Complete MTDD
--- NOTE | 2016-11-02 01:41 | EDDOCDS ---
Physician Documentation [facility] Name: Carola Parekh Age: 26 yrs Sex: Female : 1990 Arrival Date: 10/30/2016 Time: 15:03 Bed OBSERVATION Private MD: Disposition: 10/30/16 21:18 Hospitalization ordered by Santos Rouse for Inpatient Admission. Preliminary diagnosis is Major depressive disorder, recurrent. - Bed requested for Admit. - Status is Inpatient Admission. ld5 - Condition is Stable. - Problem is an ongoing problem. - Symptoms are unchanged. HPI: 10/30 15:23 This 26 yrs old Female presents to ER via Walkin/Carried/Asstd with complaints of Psych Problem. 15:23 The history is obtained from the patient, transfer records. The patient presents to the emergency department with suicidal ideation, depression. At their worst, the symptoms were moderate. In the emergency department, the symptoms are mild. She has been having a hard time dealing with a friend's , who recently committed suicide. She was seen at [facility] and admitted to [facility] and was sent here for evaluation. She is very upset and is wanting to leave the ED. She admits to depression and [facility] and does not want to . The patient has not experienced similar symptoms in the past. The patient has not recently seen a physician. Historical: - Allergies: no known allergies; - Home Meds: 1. none - PMHx: none; - PSHx: none; - The history from nurses notes was reviewed: and I agree with what is documented. - Social history: Smoking status: Patient states was never smoker of tobacco. No barriers to communication noted, The patient speaks fluent Yoruba. - : The pt / caregiver states he / she is not on anticoagulants. Home medication list is obtained from the patient. - Hospitalizations: : No recent hospitalization is reported. - Exposure Risk Screening:: None identified. - Immunization history:: All immunizations up-to-date. - Family history: Not pertinent. - Social history:: the patient is a non-smoker, the patient drinks alcohol, socially. 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 The psychiatric and neurological components pc are also addressed in the HPI. Exam: 15:23 General Appearance: alert, no acute distress. pc 15:23 ENT: ear, nose and throat normal, pharynx normal. 15:23 Eyes: pupils equal, round and reactive to light, extraocular motions intact. 15:23 Neck: The exam reveals no acute abnormalities. ROM is normal and painless. No nuchal rigidity is noted.. 15:23 Respiratory: breathing is even and unlabored, breath sounds are normal. 15:23 Cardiovascular: regular pulse rate, regular heart rhythm, normal heart sounds, equal and full pulses bilaterally. 15:23 Abdomen: soft, non-tender, no organomegaly, normal bowel sounds. 15:23 Skin: skin color is normal, warm, dry. 15:23 Extremities: The extremities have a grossly normal appearance, are non-tender, without acute ROM abnormalities. 15:23 Neuro: alert, oriented to person, place and time, cranial nerves normal as tested, no motor deficits, no sensory deficits. 15:23 Psych: mood is depressed, angry, affect is flat. Vital Signs: 15:08 BP 128 / 89; Pulse 87; Resp 18; Temp 96.8; Pulse Ox 98% on R/A; Weight 69.85 kg / mk4 153.99 lbs; Height 5 ft. 2 in. (157.48 cm); 18:48 BP 147 / 89; Pulse 78; Resp 18; Temp 97.7(O); Pulse Ox 99% on R/A; nb2 10/31 00:38 BP 121 / 67; Pulse 89; Resp 16; Temp 96.9; Pulse Ox 100% on R/A; Pain 0/10; ld5 10/30 15:08 Body Mass Index 28.17 (69.85 kg, 157.48 cm) mk4 MDM: 10/30 15:23 Consult PFS/PSA/Coat Repair Inspector: Patient's case requires discussion with on-call pc Psychiatrist ordered. 15:23 PSA/PFS to call Nursing [employer] T[employer], to enter patient data on [place] Safe [place] if patient pc involuntarily admitted or transferred for SI or HI ordered. 15:23 Confirm accurate psychiatric medication list and times of last dosage ordered. pc 15:23 Detain Pt Until Medically/PFS Cleared ordered. pc 15:23 Differential diagnosis: depression, suicidal ideation, adjustment disorder. Plan: labs, pc PFS eval. 15:24 Acetaminophen Level Ordered. EDMS 15:24 Basic Metabolic Profile Ordered. EDMS 15:24 Complete Blood Count Ordered. EDMS 15:24 Drug Eval Toxicology ED Only Ordered. EDMS 15:24 Ethyl Alcohol (ethanol) Ordered. EDMS 15:24 HCG,Serum Qualitative Ordered. EDMS 15:24 Liver Profile Ordered. EDMS 15:24 Salicylate Level Ordered. EDMS 15:24 Thyroid Stimulating Hormone Ordered. EDMS 16:49 Acetaminophen Level Reviewed. pc 16:49 Basic Metabolic Profile Reviewed. pc 16:49 Ethyl Alcohol (ethanol) Reviewed. pc 16:49 Liver Profile Reviewed. pc 16:49 Salicylate Level Reviewed. pc 16:50 Thyroid Stimulating Hormone Reviewed. pc 16:50 Complete Blood Count Reviewed. pc 16:50 Drug Eval Toxicology ED Only Reviewed. pc 16:50 HCG,Serum Qualitative Reviewed. pc 17:15 Acetaminophen Level Reviewed. pc 17:15 Basic Metabolic Profile Reviewed. pc 17:15 Salicylate Level Reviewed. pc 17:15 Ethyl Alcohol (ethanol) Reviewed. pc 17:15 HCG,Serum Qualitative Reviewed. pc 17:15 Liver Profile Reviewed. pc 17:15 Thyroid Stimulating Hormone Reviewed. pc 17:17 REGULAR DIET PLASTIC JUÁREZ+DIET ordered. EDMS 18:08 Financial registration complete. gjb 18:18 [facility] [place] Payment Agreement was scanned into [employer] and attached to record. gjb 20:14 Consult PFS/PSA/Coat Repair Inspector: Patient's case requires discussion with on-call jfb Psychiatrist complete. 20:14 PSA/PFS to call Nursing Mat Machine Tender, to enter patient data on [facility] Safe Act if patient jfb involuntarily admitted or transferred for SI or HI complete. 20:40 Admit to [facility]: ordered. EDMS 21:11 [facility] Legal paperwork was scanned into [employer] and attached to record. rb 21:19 BED REQUEST+ADM ordered. EDMS 10/31 13:23 PCR was scanned into [employer] and attached to record. gb Signatures: Dispatcher [employer] EDVA Armaan Higgins MD MD pc Baxter, Renee, PSA PSA rb Krystal Hugo, Reg Reg MariaG uadalupe Jordan, PSA PSA jfb Ariane Farias,RN RN ld5 Kadeem Randall DO DO cs11 Gina Nava RN RN [id number] Ariella Ferrera The chart was reviewed and I authenticate all verbal orders and agree with the evaluation and treatment provided.Attachments: 10/30 18:18 [facility] Payment Agreement gjb Chart Complete MTDD
--- NOTE | 2016-11-02 01:41 | EDDOCDS ---
Nurse's Notes [facility] Name: Carola Parekh Age: 26 yrs Sex: Female : 1990 Arrival Date: 10/30/2016 Time: 15:03 Bed OBSERVATION Private MD: Diagnosis: Major depressive disorder, recurrent Presentation: 10/30 15:05 Presenting complaint: Patient states: pt sent from [facility] for evaluation of mk4 very bad depression and suicidal thoughts.. recent suicide of very good friend 2 weeks ago which exacerbated this. Mental Health Triage Level: Level 2: The patient displays active suicidal ideations. Adult Sepsis Screening: The patient does not have new or worsening altered mentation. Patient's respiratory rate is less than 22. Systolic blood pressure is greater than 100. Patient has a qSOFA score of 0- Negative Sepsis Screen. Suicide/Homicide risk assessment- The patient admits to and/or has been reported to be having suicidal ideations. The patient reports that he/she has not been admitted to an inpatient mental health facility in the last 30 days. The patient reports that he/she does not have a recent or current history of substance abuse. The patient reports that he/she has no prior history of suicide attempt and/or organized plan. The patient reports that he/she has experienced a significant life altering event in the last 30 days. The patient reports that he/she has adequate social support. The patient reports he/she has no significant chronic medical condition(s). 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 Transition of care: patient was not received from another setting of care. 15:05 Acuity: AGUSTINA Level 3 mk4 15:05 Method Of Arrival: Walkin/Carried/Asstd mk4 Triage Assessment: 15:08 General: Appears distressed, Behavior is flat. Pain: Denies pain. HIV screening NA for mk4 this visit Offered previously. STUDY MANAGER: 15:08 LMP 10/05/2016 mk4 Historical: - Allergies: no known allergies; - Home Meds: 1. none - PMHx: none; - PSHx: none; - The history from nurses notes was reviewed: and I agree with what is documented. - Social history: Smoking status: Patient states was never smoker of tobacco. No barriers to communication noted, The patient speaks fluent Tristanian. - : The pt / caregiver states he / she is not on anticoagulants. Home medication list is obtained from the patient. - Hospitalizations: : No recent hospitalization is reported. - Exposure Risk Screening:: None identified. - Immunization history:: All immunizations up-to-date. - Family history: Not pertinent. - Social history:: the patient is a non-smoker, the patient drinks alcohol, socially. Screenin:36 Screening information is obtained from the patient. Fall risk: No risks identified. ttb Assistance ADL's: requires no assistance with activities of daily living. Abuse/DV Screen: The patient / caregiver reports he/she is: not in a situation that causes fear, pain or injury. Nutritional screening: No deficits noted. Advance Directives: Currently, there is no health care proxy. home support is adequate. Assessment: 15:11 General: Appears distressed, Behavior is anxious, flat. Pain: Denies pain. mk4 Neurological: Level of Consciousness is awake, alert, Oriented to person, place, time. Respiratory: Airway is patent Respiratory effort is even. Derm: Skin. 15:57 General: Appears in no apparent distress, Behavior is cooperative, quiet. General: dwg Awake and alert, calm and cooperative.. Pain: Denies pain. Neurological: Level of Consciousness is awake, alert, Oriented to person, place, time. 16:36 General: Appears in no apparent distress, comfortable, Behavior is quiet. General: ttb chain of command at bedside. . Neurological: Level of Consciousness is awake, alert. Respiratory: Airway is patent Respiratory effort is even, unlabored, Respiratory pattern is regular, symmetrical. Derm: Skin is normal. 17:30 General: Appears in no apparent distress, to be sleeping. ttb 17:30 Respiratory: Airway is patent. ttb 18:30 Reassessment: Patient appears in no apparent distress at this time. pt tolerated ttb dinner. Resting in room.. 19:01 General: report given to WILLIAMS Young at this time.. ttb 20:00 General: Appears in no apparent distress, comfortable, Behavior is appropriate for age, rw1 cooperative, quiet. Pain: Denies pain. Neurological: Level of Consciousness is awake, alert, obeys commands, Oriented to person, place, time. Respiratory: Airway is patent Respiratory effort is even, unlabored. Derm: Skin is normal. 21:01 Reassessment: Patient appears in no apparent distress at this time. resting quietly on rw1 stretcher, safety maintained will monitor.. 10/31 00:38 General: Appears in no apparent distress, Behavior is appropriate for age, cooperative. ld5 Pain: Denies pain. Neurological: Level of Consciousness is awake, obeys commands. Respiratory: Airway is patent Respiratory effort is even, unlabored. 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 [facility] Behavioral Health: The patient is not an established patient of [facility] Behavioral Health. Referral Information: Evaluation referral is generated by PT's Chain of Command. 20:34 Referral Information: The patient was referred for evaluation because PT +depression jfb with SI. Subjective: The patients chief complaint is PT states she is experiencing "crushing depression" currently with vague SI, no plan. PT's co worker and good friend killed himself over a month ago and she is having a difficult time with her grieving. PT also had a one night stand a few weeks ago and then she took several test and believed she was . Last night she repeated the tests and now feels she has miscarried. PT feels that she is treated in a bad way by her VIPIN and today he had her remove all of her things from her room, buff her floors and then put everything back in place and "I snapped" meaning she started screaming and crying and demanded to speak with the Alana. PT's Alana spent time with PT and then he brought her to be seen as a walk in at [facility] who in turn sent her here for [facility]. PT denies she made any direct statements of self harm but admits to sharing that she has had thoughts "I can't take it anymore. I'm tired and don't want to do this anymore" Per the Alana who arrived to support PT he has known her since [place] and she has always struggled with managing her depression and he is concerned that she believed she was and lost the baby. Alana has discussed admission with PT and he is a buffer between her and the VIPIN who is also present and states he has no idea what he has done to upset PT so much. PT tearful and unable to CFS with confidence. . Delusions are denied. Patient's mood is depressed, Hallucinations are denied. Mental Health history: depression, suicide at age 16 PT sat with a knife and thought about cutting her wrists Mental Health Admissions: None. Current Outpatient Mental Health Services: Therapist / Agency: [facility] Dr. Gar. Current living environment is The patient currently lives in a [facility]. Patient presents to Emergency Department with the following symptoms within the past 2 weeks: increased appetite, depressed mood, feelings of helplessness/hopelessness, poor concentration, sleep disturbance - erratic suicidal ideation with no plan. Substance abuse: Pt denies. Mental status exam: Patients appearance is appropriate, Patient's behavior is cooperative, Speech is normal. Affect is flat. Mood is depressed. Hallucinations are denied. Appetite is characterized by binges. Memory is good. Energy level is normal. Content of thought is depressed Thought process is intact. Cognitive level is oriented to person, place, time and situation Patient's insight is fair. Judgement is fair. Rapport with interviewer is good. Suicidal Ideation is present with no specific plan. Homicidal ideation is not present. Disposition: Medically cleared for disposition by Kadeem Randall DO Psychiatric Consult is performed by phone with Dr Santos Rouse. [facility] Admission Criteria: The patient is experiencing suicidal ideation. The patient requires continuous observation and/or control to protect self, others or property. The patient's care requires a multi-modal treatment plan under close supervision and coordination due to the complexity and severity of the patient's symptoms. Legal Status: Patient's legal status will be Emergency admission: 939. DSM-V Differential Diagnosis: Unspecified Depressive Disorder (F32.9). Insurance Pre-Certification: Not Required, . Awaiting: transfer to [facility]. Vital Signs: 15:08 BP 128 / 89; Pulse 87; Resp 18; Temp 96.8; Pulse Ox 98% on R/A; Weight 69.85 kg; Height mk4 5 ft. 2 in. (157.48 cm); 18:48 BP 147 / 89; Pulse 78; Resp 18; Temp 97.7(O); Pulse Ox 99% on R/A; nb2 10/31 00:38 BP 121 / 67; Pulse 89; Resp 16; Temp 96.9; Pulse Ox 100% on R/A; Pain 0/10; ld5 10/30 15:08 Body Mass Index 28.17 (69.85 kg, 157.48 cm) mk4 ED Course: 10/30 15:04 Patient visited by Melida Haider, Reg. lg 15:[address] [facility] lg 15:05 Armaan Higgins MD is Attending Physician. pc 15:05 Patient moved to [address] 15:08 Triage Initiated 4 15:20 Patient has correct armband on for positive identification. Placed in gown. Placed in tmm1 psych safe attire. Bed in low position. Side rails up X 1. Security observing. Property removed, inventory done, secured in belongings bag- placed in locked locker. Door closed. Noise minimized. Visitors limited. Psych Safety Check: Location: Psych Room. Visual Assessment: Cooperative. 15:23 Patient visited by Armaan Higgins MD. pc 15:30 Psych Safety Check: Location: Psych Room. Visual Assessment: Cooperative. tmm1 15:45 Psych Safety Check: Location: Psych Room. Visual Assessment: Cooperative. tmm1 15:56 Acetaminophen Level Sent. dwg 15:56 Basic Metabolic Profile Sent. dwg 15:57 Complete Blood Count Sent. dwg 15:57 Drug Eval Toxicology ED Only Sent. dwg 15:57 Ethyl Alcohol (ethanol) Sent. dwg 15:57 HCG,Serum Qualitative Sent. dwg 15:57 Liver Profile Sent. dwg 15:57 Salicylate Level Sent. dwg 15:57 Thyroid Stimulating Hormone Sent. dwg 15:58 Patient visited by Paul Perez RN. dwg 16:00 Psych Safety Check: Location: Psych Room. Visual Assessment: Cooperative. tmm1 16:15 Psych Safety Check: Location: Psych Room. Visual Assessment: Cooperative. tmm1 16:30 Psych Safety Check: Location: Psych Room. Visual Assessment: Cooperative. tmm1 16:35 Patient visited by Ellie Zimmer RN. ttb 16:36 The patient / caregiver is instructed regarding the plan of care and ED course. ttb Accompanied by VIPIN, Patient has correct armband on for positive identification. Placed in psych safe attire. Security observing. 16:36 No IV's were initiated during this patient's visit. No procedures done that require ttb assistance. Labs drawn. (by ED staff). Urine collected. Clean catch specimen. 16:37 Patient visited by Ellie Zimmer RN. ttb 16:45 Psych Safety Check: Location: Psych Room. Visual Assessment: Cooperative. tmm1 17:00 Psych Safety Check: Location: Psych Room. Visual Assessment: Cooperative. tmm1 17:15 Psych Safety Check: Location: Medical Room. Visual Assessment: Cooperative. tmm1 17:16 Patient visited by Ellie Zimmer RN. ttb 17:30 Psych Safety Check: Location: Psych Room. Visual Assessment:. tmm1 17:30 Security observing. ttb 17:39 Patient visited by Mima Rosales PCA. tmm1 17:45 Psych Safety Check: Location: Psych Room. Visual Assessment: Cooperative. tmm1 17:57 Patient visited by Mima Rosales PCA. tmm1 18:00 Psych Safety Check: Location: Psych Room. Visual Assessment: Cooperative. tmm1 18:14 Psych Safety Check: Location: Psych Room. Visual Assessment: Cooperative. tmm1 18:15 Patient visited by iMma Rosales PCA. tmm1 18:18 [facility] Payment Agreement was scanned into Yout[employer] and attached to record. gjb 18:30 Psych Safety Check: Location: Psych Room. Visual Assessment: Cooperative. tmm1 18:30 Security observing. ttb 18:36 Patient visited by Mima Rosales PCA. tmm1 18:45 Psych Safety Check: Location: Psych Room. Visual Assessment: Cooperative. tmm1 18:48 Patient visited by Kelsi Sal. nb2 18:58 Attending Physician role handed off by Armaan Higgins MD cs11 18:58 Kadeem Randall DO is Attending Physician. cs11 18:58 Santiago Howard LPN is Primary Nurse. rw1 18:58 Patient moved to OBSERVATION cs11 19:01 Patient visited by Mima Rosales PCA. tmm1 19:01 Psych Safety Check: Location: Psych Room. Visual Assessment: Cooperative. tmm1 19:15 Psych Safety Check: Location: Psych Room. Visual Assessment: Cooperative. tmm1 19:32 Psych Safety Check: Location: Psych Room. Visual Assessment: Cooperative. tmm1 19:46 Psych Safety Check: Location: Psych Room. Visual Assessment: Cooperative. tmm1 20:03 Psych Safety Check: Location: Psych Room. Visual Assessment: Cooperative. tmm1 20:05 Psych Safety Check: Location:. tmm1 20:30 Psych Safety Check: Location: Psych Room. Visual Assessment: Cooperative. tmm1 20:40 Patient visited by Santiago Howard LPN. rw1 20:45 Psych Safety Check: Location: Psych Room. Visual Assessment: Cooperative. tmm1 21:00 Psych Safety Check: Location: Psych Room. Visual Assessment: Cooperative. tmm1 21:02 Patient visited by Santiago Howard LPN. rw1 21:11 [facility] Legal paperwork was scanned into Youtuo and attached to record. rb 21:15 Psych Safety Check: Location: Psych Room. Visual Assessment: Cooperative. tmm1 21:16 Patient visited by Santiago Howard LPN. rw1 21:17 Santos Rouse is Hospitalizing Provider. cs11 21:30 Psych Safety Check: Location: Psych Room. Visual Assessment: Cooperative. tmm1 21:45 Psych Safety Check: Location: Psych Room. Visual Assessment: Cooperative. tmm1 21:59 Psych Safety Check: Location: Psych Room. Visual Assessment: Cooperative. tmm1 22:15 Psych Safety Check: Location: Psych Room. Visual Assessment: Cooperative. tmm1 22:30 Psych Safety Check: Location: Psych Room. Visual Assessment: Cooperative. tmm1 22:44 Psych Safety Check: Location: Psych Room. Visual Assessment: Cooperative. tmm1 22:52 Psych Safety Check: Location: Psych Room. Visual Assessment: Cooperative. tmm1 23:00 Psych Safety Check: Location: Psych Room. Visual Assessment: Cooperative. tr 23:16 Patient visited by Mychal Gamez. tr 23:49 Patient visited by Mychal Gamez. tr 10/31 00:03 Patient visited by Mychal Gamez. tr 00:14 Patient visited by Mychal Gamez. tr 00:33 Patient visited by Mychal Gamez. tr 00:40 Patient visited by Ariane Farias RN. ld5 13:23 PCR was scanned into Youtuo and attached to record. gb Attachments: 21:11 [facility] Legal paperwork rb Order Results: Lab Order: Acetaminophen Level; SPEC'M 10/30/16 15:51 Test: ACETAMINOPHEN LEVEL; Value: < 2.0; Range: 10.0-30.0; Abnormal: Below low normal; Units: UG/ML; Status: F Lab Order: Basic Metabolic Profile; SPEC'M 10/30/16 15:51 Test: GLUCOSE, FASTING; Value: 93; Range: 70-105; Units: MG/DL; Status: F Test: BLOOD UREA NITROGEN; Value: 10; Range: 7-18; Units: MG/DL; Status: F Test: CREATININE FOR GFR; Value: 0.62; Range: 0.55-1.02; Units: MG/DL; Status: F Test: SODIUM LEVEL; Range: 136-145; Units: MEQ/L; Status: I Test: POTASSIUM SERUM; Range: 3.5-5.1; Units: MEQ/L; Status: I Test: CHLORIDE LEVEL; Range: 98-107; Units: MEQ/L; Status: I Test: CARBON DIOXIDE LEVEL; Range: 21-32; Units: MEQ/L; Status: I Test: ANION GAP; Range: 8-16; Units: MEQ/L; Status: I Test: CALCIUM LEVEL; Range: 8.5-10.1; Units: MG/DL; Status: I Test: GLOMERULAR FILTRATION RATE; Value: > 60.0; Range: >60; Status: F Test: SODIUM LEVEL; Value: 139; Range: 136-145; Units: MEQ/L; Status: F Test: POTASSIUM SERUM; Value: 4.2; Range: 3.5-5.1; Units: MEQ/L; Status: F Test: CHLORIDE LEVEL; Value: 103; Range: 98-107; Units: MEQ/L; Status: F Test: CARBON DIOXIDE LEVEL; Value: 29; Range: 21-32; Units: MEQ/L; Status: F Test: ANION GAP; Value: 7; Range: 8-16; Abnormal: Below low normal; Units: MEQ/L; Status: F Test: CALCIUM LEVEL; Value: 8.1; Range: 8.5-10.1; Abnormal: Below low normal; Units: MG/DL; Status: F Test Note: ; Units are mL/min/1.73 m2 Chronic Kidney Disease Staging per NKF: Stage I & II GFR >=60 Normal to Mildly Decreased Stage III GFR 30-59 Moderately Decreased Stage IV GFR 15-29 Severely Decreased Stage V GFR <15 Very Little GFR Left ESRD GFR <15 on SPLICING TECHNICIAN Lab Order: Complete Blood Count; SPEC'M 10/30/16 15:51 Test: WHITE BLOOD COUNT; Value: 8.5; Range: 4.0-10.0; Units: K/mm3; Status: F Test: RED BLOOD COUNT; Value: 4.97; Range: 4.00-5.40; Units: M/mm3; Status: F Test: HEMOGLOBIN; Value: 14.2; Range: 12.0-16.0; Units: g/dl; Status: F Test: HEMATOCRIT; Value: 41.8; Range: 36.0-47.0; Units: %; Status: F Test: MEAN CORPUSCULAR VOLUME; Value: 84.0; Range: 80.0-96.0; Units: fl; Status: F Test: MEAN CORPUSCULAR HEMOGLOBIN; Value: 28.5; Range: 27.0-33.0; Units: pg; Status: F Test: MEAN CORPUSCULAR HGB CONC; Value: 33.9; Range: 32.0-36.5; Units: g/dl; Status: F Test: RED CELL DISTRIBUTION WIDTH; Value: 12.2; Range: 11.5-14.5; Units: %; Status: F Test: PLATELET COUNT, AUTOMATED; Value: 318; Range: 150-450; Units: k/mm3; Status: F Lab Order: Drug Eval Toxicology ED Only; SPEC'M 10/30/16 15:51 Test: AMPHETAMINES LEVEL URINE; Value: NEGATIVE; Range: NEGATIVE; Status: F Test: BARBITURATES URINE; Value: NEGATIVE; Range: NEGATIVE; Status: F Test: BENZODIAZEPINES URINE; Value: NEGATIVE; Range: NEGATIVE; Status: F Test: CANNABINOIDS URINE; Value: NEGATIVE; Range: NEGATIVE; Status: F Test: COCAINE METABOLITE URINE; Value: NEGATIVE; Range: NEGATIVE; Status: F Test: METHADONE URINE; Value: NEGATIVE; Range: NEGATIVE; Status: F Test: OPIATES URINE; Value: NEGATIVE; Range: NEGATIVE; Status: F Test: TRICYCLIC ANTIDEPRESS URINE; Value: NEGATIVE; Range: NEGATIVE; Status: F Test Note: ; ALL PRESUMPTIVE POSITIVE FINDINGS ARE UNCONFIRMED NORMAL VALUES THRESHOLD IN NG/ML AMPHETAMINES 1000 METHAMPHETAMINES 1000 BARBITURATES 300 BENZODIAZEPINES 300 CANNABINOIDS (THC) 50 COCAINE METABOLITE 300 METHADONE 300 OPIATES 300 PHENCYCLIDINE 25 TRICYCLIC ANTIDEPRESSANTS 1000 RESULTS ARE FOR MEDICAL PURPOSES ONLY. ALL URINE SPECIMENS WILL BE SAVED FOR 3 DAYS. IF CONFIRMATION OF A PRESUMPTIVE POSTIVE SCREEN RESULT IS DESIRED, CALL CHEMISTRY ([phone]) AND REQUEST URINE TO BE SENT TO REFERENCE LAB. FOR A LIST OF CLOSELY RELATED COMPOUNDS PLEASE CALL THE LAB. Lab Order: Ethyl Alcohol (ethanol); SPEC'M 10/30/16 15:51 Test: ETHYL ALCOHOL (ETHANOL); Value: < 0.003; Range: 0.000-0.010; Units: %; Status: F Lab Order: HCG,Serum Qualitative; SPEC'M 10/30/16 15:51 Test: HCG, SERUM QUALITATIVE; Value: NEGATIVE; Range: NEGATIVE; Status: F Lab Order: Liver Profile; SPEC'M 10/30/16 15:51 Test: AST/SGOT; Value: 28; Range: 15-37; Units: U/L; Status: F Test: ALT/SGPT; Value: 76; Range: 12-78; Units: U/L; Status: F Test: ALKALINE PHOSPHATASE; Value: 93; Range: 45-117; Units: U/L; Status: F Test: BILIRUBIN,TOTAL; Value: 0.3; Range: 0.2-1.0; Units: MG/DL; Status: F Test: BILIRUBIN,DIRECT; Value: < 0.1; Range: 0.0-0.2; Units: MG/DL; Status: F Test: TOTAL PROTEIN; Value: 7.7; Range: 6.4-8.2; Units: GM/DL; Status: F Test: ALBUMIN; Value: 4.0; Range: 3.2-5.2; Units: GM/DL; Status: F Test: ALBUMIN/GLOBULIN RATIO; Value: 1.08; Range: 1.00-1.93; Status: F Lab Order: Salicylate Level; SPEC'M 10/30/16 15:51 Test: SALICYLATE LEVEL; Value: < 1.7; Range: 5.0-30.0; Abnormal: Below low normal; Units: MG/DL; Status: F Lab Order: Thyroid Stimulating Hormone; SPEC'M 10/30/16 15:51 Test: THYROID STIMULATING HORMONE; Value: 1.350; Range: 0.358-3.740; Units: uIU/ML; Status: F Outcome: 10/30 21:18 Decision to Hospitalize by Provider. cs11 10/31 00:38 Discharge Assessment: Patient awake, alert and oriented x 3. No cognitive and/or ld5 functional deficits noted. Patient verbalized understanding of disposition instructions. Patient patient administered narcotics - no. The following High Risk Discharge criteria are identified: Yes, IMHU admission. Admitted to Psych accompanied by tech, via wheelchair, with chart. Condition: stable. No special radiology studies were completed. 00:40 Patient left the ED. ld5 Signatures: Armaan Higgins MD MD pc Greene, Daniel, RN RN dwg Adonis, Aury, PSA PSA rb Krysatl Hugo, Reg Reg gb Melida Haider, Reg Reg lg Vera, Mychal tr Santiago Howard,EMPLOYEE ADVISER EMPLOYEE ADVISER rw1 Maria Guadalupe Stewart, PSA PSA cristóbalb Ariane FariasRN RN ld5 Kadeem Randall, DO cs11 Ellie Zimmer, RN RN ttb Mima Rosales, HAND MARKER HAND MARKER tmm1 Gina Nava, RN RN mk4 Ariella Ferrera Nicole nb2 Chart Complete JUAN C
[2016-11-02 06:25] VITALS: BP 116/64
[2016-11-02] MEDS: buPROPion **XL** TABLET 150MG (WELLBUTRIN XL) PO SCH (08:31)
--- NOTE | 2016-11-02 12:00 | IPNPDOC ---
[facility] Progress Note Progress Note DATE OF SERVICE: 11/02/16 HISTORY: Bite Block Maker met with patient today to assess treatment progress on inpatient unit. Patient continues to adjust to unit, has been visible and attending unit activities, is now engaging with peers and indicates she continues to find interactions with staff and group programming helpful. Patient reports low level anxiety, low level depression, denies suicidal and homicidal ideation, denies audiovisual hallucinations, and denies urge to engage in self-injurious behavior. Patient reports improvement to sleep, notes she took trazodone 50 mg last night, indicates medication was effective and denies medication side effects, denies nightmares symptoms. Patient reports stable appetite, reports ongoing challenges with concentration and focus, indicates energy level is improving. Patient denies symptoms of panic, irritability or mood lability, appears considerably less emotionally distant today, remains unable to comment on grief she is experiencing but today verbalizes awareness of value of processing emotions in order to move forward with her life. Patient states she wants to continue with Wellbutrin XL medication trial, again verbalizes concerns about potential weight gain, but states she feels motivated to attempt to reduce symptoms of anxiety and depression. 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 VITAL SIGNS: See below. NEW TEST RESULTS: No new lab results. Recent loss of , lump in left breast, chronic pain to right knee. Lab results on admission indicate low anion gap and calcium. HCG negative on admission UDS negative on admission 10/31/16 EKG results Normal sinus rhythm Nonspecific T-wave abnormalities. No prior tracing for comparison. Clinical correlation advised, SIMBA has been asked to evaluate CURRENT MEDICATIONS: See below. 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 Speech: Is of normal rate, rhythm, volume, coherent and spontaneous Language skills are intact. Thought processes: Clear, goal-directed. Thought content: Rational, logical, no indication of paranoia. Abstract reasoning: Intact. Description of associations: Intact. Description of abnormal or psychotic thoughts: denies hallucinations, delusions , preoccupation with violence, homicidal or suicidal ideation, and obsessions Judgment: Fair, some improvement Insight: Fair, continues to improve Orientation to time, place and person. Recent and remote memory: Intact Attention span and concentration: Within normal limits. Language: Normal. Fund of knowledge: Adequate. Mood: "I feel pretty good." Appears less anxious, is less irritable, appears less depressed, no mood lability noted. Affect: Constricted, but brightens 2, congruent with mood. DIAGNOSES: Adjustment disorder with mixed anxiety and depressed mood, bereavement, ADHD by history (pt report), rule out MDD ASSESSMENT: Patient remains visible on unit, attends groups, indicates unit programming is helpful in helping her develop new coping mechanisms, and is now socializing appropriately with peers. Patient started taking Wellbutrin XL 150 mg this morning, denies noting changed to mental status post taking medication and denies medication side effects. Patient indicates she also took trazodone for sleep last night, notes "I slept great and I think that's helping me feel less irritable." Patient denies current suicidal and homicidal ideation and verbalizes understanding of how to access supportive services on unit if needed. Will continue to monitor patient's response to Wellbutrin XL 150 mg po q am in effort to reduce symptoms of anxiety and depression. Will also continue to monitor patient's response to the inpatient environment, patient's safety, resolution of suicidal ideation, and discharge readiness. Patient reiterates today when ready, she desires discharge back to [facility], today informs com writer that though she feels participating in outpatient behavioral health treatment will be difficult, she reiterates that attending psychotherapy will be in her "best interest." MANAGEMENT PLAN: Continue Wellbutrin XL 150 mg po q am and trazodone 50 mg po hs PRN insomnia Maintain safety precautions Patient to attend groups and participate in unit programming to develop coping strategies Engage patient in discharge planning process and arrange meeting with command to evaluate safe discharge planning when appropriate Recommend comprehensive ADHD diagnostic testing upon return to [facility] outpatient behavioral health Patient to follow up with [facility] upon discharge TIME SPENT: 35 minutes Vital Signs Vital Signs Date Time Temp Pulse Resp B/P Pulse Ox O2 Delivery O2 Flow Rate FiO2 11/02/16 06:25 95.7 79 18 116/64 Current Medications Current Medications Acetaminophen (Tylenol Tab) 650 mg Q6HP PRN PO HEADACHE or DISCOMFORT; Start at 02:45; Stop 11/30/16 at 02:44 Al Hydrox/Mg Hydrox/Simethicone (Mylanta) 30 ml Q4HP PRN PO HEARTBURN/ INDIGESTION; Start 10/31/16 at 02:45; Stop 11/30/16 at 02:44 Bupropion HCl (Wellbutrin Xl) 150 mg QAM PO Last administered on 11/02/16 08: 31; Start 11/02/16 at 09:00; Stop 12/02/16 at 08:59 Home Med (Med Rec Complete!) ASDIRECTED XX ; Start 10/30/16 at 21:45; Stop at 00:54; Status DC Hydroxyzine HCl (Atarax) 50 mg Q6HP PRN PO anxiety; Start 10/31/16 at 19:15; Stop 11/30/16 at 19:14 Lorazepam (Ativan) 1 mg Q6HP PRN PO ANXIETY; Start 10/31/16 at 02:45; Stop at 19:04; Status DC Magnesium Hydroxide (Milk Of Magnesia) 30 ml DAILYPRN PRN PO CONSTIPATION; Start 10/31/16 at 02:45; Stop 11/30/16 at 02:44 Trazodone HCl (Desyrel) 50 mg QHSP PRN PO INSOMNIA Last administered on t 20:45; Start 10/31/16 at 02:45; Stop 11/30/16 at 02:44 Allergies Coded Allergies: No Known Allergies (Unverified , 10/30/16) Geneva Cassidy Nov 02, 2016 12:00
[2016-11-02 18:00] VITALS: BP 127/73
[2016-11-02] MEDS: traZODone 50 MG TAB PO PRN (20:35)
[2016-11-03 06:46] VITALS: BP 115/59
[2016-11-03] MEDS: hydrOXYzine 50 MG TAB PO PRN (08:06)
[2016-11-03] MEDS: buPROPion **XL** TABLET 150MG (WELLBUTRIN XL) PO SCH (08:06)
[2016-11-03 18:00] VITALS: BP 117/61
[2016-11-03] MEDS: traZODone 50 MG TAB PO PRN (21:12)
[2016-11-04 06:21] VITALS: BP 122/71
[2016-11-04] MEDS: buPROPion **XL** TABLET 150MG (WELLBUTRIN XL) PO SCH (08:17)
[2016-11-04] MEDS: hydrOXYzine 50 MG TAB PO PRN (08:18)
[2016-11-04 18:00] VITALS: BP 123/79
[2016-11-04] MEDS: traZODone 50 MG TAB PO PRN (21:25)
[2016-11-05 06:38] VITALS: BP 141/56
[2016-11-05] MEDS: buPROPion **XL** TABLET 150MG (WELLBUTRIN XL) PO SCH (08:23)
--- NOTE | 2016-11-05 09:51 | IPN ---
DATE: 11/03/2016 SUBJECTIVE: "I'm feeling a little better." OBJECTIVE: Patient is improving slowly and feels less depressed. Denies side effect from medication. Is motivated for treatment. Is sleeping well with the help of medication. No evidence of psychotic features. MENTAL STATUS EXAMINATION: Patient is dressed in [facility]. Patient is cooperative during exam. Has fair contact. Speech is slow and monotone. Mood is depressed and anxious. Affect is restricted. No delusions or hallucinations. Memory is fair. Patient is fully oriented. Associations are intact. Thinking is logical. Thought content is appropriate. Patient is able to contract for safety in the unit, and denies suicidal or homicidal ideation during the interview. Insight and judgment is limited. ASSESSMENT: Depression with suicidal ideation. PLAN: 1. Continue with Wellbutrin 50 mg by mouth every morning. 2. Trazodone 50 mg by mouth nightly as needed for insomnia. 3. Vistaril as needed for anxiety. 4. Medication management, individual and group therapy.
--- NOTE | 2016-11-05 10:02 | IPNPDOC ---
[facility] Progress Note Progress Note DATE OF SERVICE: 11/05/16 HISTORY: Players Club Representative met with patient today to assess treatment progress on inpatient unit. Patient continues to adjust to unit, has been visible and attending unit activities, is now engaging with peers and indicates she continues to find interactions with staff and group programming helpful. Patient reports /10 anxiety, 1/10 depression, denies suicidal and homicidal ideation, denies audiovisual hallucinations, and denies urge to engage in self- injurious behavior. Patient reports improvement to sleep, has been utilizing trazodone PRN hs with good effect, states she experiences intermittent am grogginess, notes medication greta effect is manageable, is aware Rx may be lowered if desired. Patient has also utilized hydroxyzine 2 over weekend, notes medication was "very effective," reducing symptoms of intermittent anxiety and reducing ruminative thinking. Patient reports stable appetite, reports improvement to concentration and focus, improvement energy level, denies symptoms of panic, irritability or mood lability, appears less emotionally distant, describes herself as "calmer," is today able to verbalize feelings of grief related to loss of friend. Patient is requesting to continue current medication regimen to address symptoms of anxiety, depression and sleep. Patient denies physical pain at time of interaction. 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 VITAL SIGNS: See below. NEW TEST RESULTS: No new lab results. Recent loss of , lump in left breast, chronic pain to right knee. Lab results on admission indicate low anion gap and calcium. HCG negative on admission UDS negative on admission 10/31/16 EKG results Normal sinus rhythm Nonspecific T-wave abnormalities. No prior tracing for comparison. Clinical correlation advised, PA has been asked to evaluate CURRENT MEDICATIONS: See below. 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 Speech: Is of normal rate, rhythm, volume, coherent and spontaneous Language skills are intact. Thought processes: Clear, goal-directed. Thought content: Rational, logical, no indication of paranoia. Abstract reasoning: Intact. Description of associations: Intact. Description of abnormal or psychotic thoughts: denies hallucinations, delusions , preoccupation with violence, homicidal or suicidal ideation, and obsessions Judgment: Fair, continues to improve Insight: Fair, continues to improve Orientation to time, place and person. Recent and remote memory: Intact Attention span and concentration: Within normal limits. Language: Normal. Fund of knowledge: Adequate. Mood: "I feel great, better than I have felt in along time." Appears less anxious, is less irritable, appears less depressed, no mood lability noted. Affect: Full range, brightens appropriately, congruent with mood. DIAGNOSES: Adjustment disorder with mixed anxiety and depressed mood, bereavement, ADHD by history (pt report), rule out MDD ASSESSMENT: Patient remains visible on unit, attends groups, indicates unit programming is helpful in helping her develop new coping mechanisms, and is now socializing appropriately with peers. Patient continues to take Wellbutrin XL 150 mg po q am with good effect, has also been utilizing medications for anxiety and sleep, indicates current medication regimen is effective, denies unmanageable side effects. Patient denies current suicidal and homicidal ideation and verbalizes understanding of how to access supportive services on unit if needed. Will continue to monitor patient's response to Wellbutrin XL 150 mg po q am in effort to reduce symptoms of anxiety and depression, as well as response to PRN trazodone and PRN hydroxyzine. Will also continue to monitor patient's response to the inpatient environment, patient's safety, resolution of suicidal ideation, and discharge readiness. Patient is in agreement with discharge back to [facility] on Saturday or Saturday depending on [facility] schedule, indicates today she is in agreement with participating with outpatient behavioral health treatment for psychotherapy and medication management, is also aware recommendation will be made for IOP evaluation. MANAGEMENT PLAN: Continue Wellbutrin XL 150 mg po q am, trazodone 50 mg po hs PRN insomnia, and Hydroxyzine 50 mg PRn anxiety Maintain safety precautions Patient to attend groups and participate in unit programming to develop coping strategies Engage patient in discharge planning process and arrange meeting with command to evaluate safe discharge planning when appropriate Recommend comprehensive ADHD diagnostic testing upon return to [facility] outpatient behavioral health Patient to follow up with [facility] upon discharge TIME SPENT: 35 minutes Vital Signs Vital Signs Date Time Temp Pulse Resp B/P Pulse Ox O2 Delivery O2 Flow Rate FiO2 11/05/16 06:38 96.2 71 16 141/56 Current Medications Current Medications Acetaminophen (Tylenol Tab) 650 mg Q6HP PRN PO HEADACHE or DISCOMFORT Last administered on 11/04/16 21:25; Start 10/31/16 at 02:45; Stop 11/30/16 at 02:44 Al Hydrox/Mg Hydrox/Simethicone (Mylanta) 30 ml Q4HP PRN PO HEARTBURN/ INDIGESTION; Start 10/31/16 at 02:45; Stop 11/30/16 at 02:44 Bupropion HCl (Wellbutrin Xl) 150 mg QAM PO Last administered on 11/05/16 08: 23; Start 11/02/16 at 09:00; Stop 12/02/16 at 08:59 Home Med (Med Rec Complete!) ASDIRECTED XX ; Start 10/30/16 at 21:45; Stop at 00:54; Status DC Hydroxyzine HCl (Atarax) 50 mg Q6HP PRN PO anxiety Last administered on 08:18; Start 10/31/16 at 19:15; Stop 11/30/16 at 19:14 Lorazepam (Ativan) 1 mg Q6HP PRN PO ANXIETY; Start 10/31/16 at 02:45; Stop at 19:04; Status DC Magnesium Hydroxide (Milk Of Magnesia) 30 ml DAILYPRN PRN PO CONSTIPATION; Start 10/31/16 at 02:45; Stop 11/30/16 at 02:44 Trazodone HCl (Desyrel) 50 mg QHSP PRN PO INSOMNIA Last administered on 21:25; Start 10/31/16 at 02:45; Stop 11/30/16 at 02:44 Allergies Coded Allergies: No Known Allergies (Unverified , 10/30/16) Geneva Cassidy Nov 05, 2016 10:02
--- NOTE | 2016-11-05 11:40 | IPNPDOC ---
Subjective Date Seen The patient was seen on 11/05/16. Subjective Chief Complaint/HPI The patient is a 26-year-old female admitted with a reason for visit of Major Depressive Do. Events since last encounter Pt states she was seen by her PCP 10/02 for nodule Left breast with U/S completed [facility]. Has had difficult time getting appt to speak with her PCP regarding these results. Has not had any further changes in the left breast. No TTP currently. No erythema. No change in size. Objective Physical Examination General Exam: Positive: Alert Eye Exam: Positive: PERRLA Chest Exam: Positive: Clear to auscultation, Normal air movement Heart Exam: Positive: Normal S1, Normal S2, Rate Normal, Regular Rhythm, Negative: Murmurs, Rubs Neuro Exam: Positive: Normal Gait Assessment /Plan Problems (1) Left breast lump Status: Acute Problem Text: * request copy of Left breast U/S from [facility] for review. * Pt has not had any changes in in size, no pain/erythema. * No lymphadenopathy. Plan/VTE VTE Prophylaxis Ordered?: No (ambulatory) VS, I&O, 24H, Fishbone Vital Signs/I&O Vital Signs Date Time Temp Pulse Resp B/P Pulse Ox O2 Delivery O2 Flow Rate FiO2 11/05/16 06:38 96.2 71 16 141/56 Carin Ackerman Nov 05, 2016 11:40
--- NOTE | 2016-11-05 17:07 | IPN ---
DATE: 11/04/2016 SUBJECTIVE: "I am okay." OBJECTIVE: Patient was laying in the bed in the middle of the morning. She appeared to be frustrated then she was able to say that she was very worried about "the lump on my breast" and she wanted to have a specialist to take a look at it. Later she was calmer. Patient stated that she is improving, is denying side effect from the medication. MENTAL STATUS EXAMINATION: Patient is dressed in [facility]. Patient was frustrated, limited eye contact. Speech is slow and monotone. Mood depressed and anxious. Affect restricted. No delusions or hallucinations. Memory is fair. Patient is fully oriented. Associations are intact. Thinking is logical. Thought content is approrpiate. Patient is able to contract for safety and denies suicidal or homicidal ideation during the interview. Insight and judgment is limited. ASSESSMENT: Depression with suicidal ideation. PLAN: 1. Continue Wellbutrin 150 mg by mouth every morning. 2. Trazodone 50 mg by mouth at bedtime as needed for insomnia. 3. Vistaril as needed for anxiety. 4. Continue medication management, individual and group therapy.
[2016-11-05 18:00] VITALS: BP 116/72
[2016-11-05] MEDS: traZODone 50 MG TAB PO PRN (21:02)
[2016-11-06 06:33] VITALS: BP 115/58
[2016-11-06] MEDS: buPROPion **XL** TABLET 150MG (WELLBUTRIN XL) PO SCH (08:41)
[2016-11-06 18:00] VITALS: BP 117/60
[2016-11-06] MEDS: traZODone 50 MG TAB PO PRN (20:56)
[2016-11-07 06:39] VITALS: BP 116/64
[2016-11-07] MEDS: buPROPion **XL** TABLET 150MG (WELLBUTRIN XL) PO SCH (08:12)
--- NOTE | 2016-11-07 09:35 | IPNPDOC ---
[facility] Progress Note Progress Note DATE OF SERVICE: 11/06/16 HPI: Patient is a 26-year-old single female who indicates she had been talking to the [facility] skidder operator and the skidder operator suggested she complete walk -in at [facility]. Patient informs board writer that a good friend of hers "" recently by way of suicide. Patient notes she presented to [facility] and commented, "I don't want the opportunity to fall down the same hole" as her friend who recently committed suicide. Patient states [facility] elected to have her evaluated at [facility] for inpatient treatment in the ER admitted her to the inpatient unit. Patient states to board writer , "I just wanted to talk to somebody I didn't want to be in the hospital." Patient reports current anxiety level of 3/10, denies symptoms of depression, denies suicidal and homicidal ideation, denies urge to engage in self-injurious behavior, and denies audiovisual hallucinations. Patient denies history of suicide attempt, endorses history of suicidal ideation 1 as teenager, denies ever having plan or intent to harm self at the time. Per lifestyle coordinator, patient also apparently experienced suicidal ideation while stationed in [employer] shortly after failing a PT test. Patient further endorses the following social stressors: recent suicide of close friend, recent apparent loss of , lump in breast and is awaiting test results, in process of being chaptered with recent initiation of separation from due to being overweight, also apparently recently failed room check, reportedly has history of performance issues while in [place]. SUBJECTIVE: Patient reports her mood has been good since admission. She reports she's expecting discharge tomorrow with a chain of command meeting tomorrow morning at 10 AM. Patient reports good sleep and appetite. She has been med compliant and only reports some daytime grogginess. Patient educated Trazodone likely the cause of her daytime sedation. Patient instructed to break the 50 mg tablet of Trazodone in half if daytime sedation persists at 50 mg dose. She denies SI and HI. Patient reports benefit from the hospitalization, reporting time to reflect and develop coping mechanisms to use in future times of stress. OBJECTIVE: VITALS: See below. MEDICATION LIST: See below. LABS: See below. MENTAL STATUS EXAMINATION: Patient is dressed in [facility]. Patient is Calm and cooperative during exam. Good eye contact. Speech is regular rate and rhythm, spontaneous. Mood is anxious. Affect is broad. No delusions or hallucinations. Memory is fair. Patient is fully oriented. Associations are intact. Thinking is logical. Thought content is appropriate, focused on discharge. Patient is able to contract for safety on the unit, and denies suicidal or homicidal ideation during the interview. Insight and judgment is fair. ASSESSMENT: Depressive disorder, unspecified PLAN: 1. Continue Wellbutrin 150 mg by mouth every morning for depression/anxiety. 2. Continue Trazodone 50 mg by mouth nightly as needed for insomnia. 3. Continue Vistaril 50mg po q6hr as needed for anxiety. 4. Medication management, individual and group therapy. TIME SPENT: [30] minutes. Vital Signs Vital Signs Date Time Temp Pulse Resp B/P Pulse Ox O2 Delivery O2 Flow Rate FiO2 11/07/16 06:39 97.7 82 18 116/64 Current Medications Current Medications Acetaminophen (Tylenol Tab) 650 mg Q6HP PRN PO HEADACHE or DISCOMFORT Last administered on 11/04/16 21:25; Start 10/31/16 at 02:45; Stop 11/30/16 at 02:44 Al Hydrox/Mg Hydrox/Simethicone (Mylanta) 30 ml Q4HP PRN PO HEARTBURN/ INDIGESTION; Start 10/31/16 at 02:45; Stop 11/30/16 at 02:44 Bupropion HCl (Wellbutrin Xl) 150 mg QAM PO Last administered on 11/07/16 08: 12; Start 11/02/16 at 09:00; Stop 12/02/16 at 08:59 Home Med (Med Rec Complete!) ASDIRECTED XX ; Start 10/30/16 at 21:45; Stop at 00:54; Status DC Hydroxyzine HCl (Atarax) 50 mg Q6HP PRN PO anxiety Last administered on 08:18; Start 10/31/16 at 19:15; Stop 11/30/16 at 19:14 Lorazepam (Ativan) 1 mg Q6HP PRN PO ANXIETY; Start 10/31/16 at 02:45; Stop at 19:04; Status DC Magnesium Hydroxide (Milk Of Magnesia) 30 ml DAILYPRN PRN PO CONSTIPATION; Start 10/31/16 at 02:45; Stop 11/30/16 at 02:44 Trazodone HCl (Desyrel) 50 mg QHSP PRN PO INSOMNIA Last administered on t 20:56; Start 10/31/16 at 02:45; Stop 11/30/16 at 02:44 Allergies Coded Allergies: No Known Allergies (Unverified , 10/30/16) SITA PETERS MD Nov 07, 2016 09:35
[2016-11-07] MEDS ORDERED: HYDRO50TAB PO (10:26)
[2016-11-07] MEDS ORDERED: TRAZO50TA PO (10:26)
[2016-11-07] MEDS ORDERED: BUPR150T3 PO (10:26)
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
== END 2016-11-07 10:40 | disposition home or self-care (01) | DRG 882 ==
LOC: M ED 15:03 → M PSY 10-31 00:47
PROVIDERS: ADMIT Psychiatry & Neurology Psychiatry; ATTEND Psychiatry & Neurology Psychiatry
DX: F43.23 Adjustment disorder with mixed anxiety and depressed mood (principal); Z63.4 Disappearance and death of family member; G47.00 Insomnia, unspecified; F43.10 Post-traumatic stress disorder, unspecified; N63 Unspecified lump in breast

== ENCOUNTER → 2016-12-07 | Day surgery (SDC) | payer OTHER ==
[~2016-12-07] VITALS: Ht 157.5 cm; Wt 71.7 kg
[~2016-12-07] MED LIST: ADDE20CA PO; BUPIVACAINE/EPIN 0.25% 30 ML VIAL As Ordered ONE; BUPR150T3 PO; CITA20TA4 PO; HYDRO50TAB PO; KETOROLAC 30 MG/ML VIAL (J1885) IV SCH; LIDOCAINE 1% SDV INJ 30 ML VIAL As Ordered ONE; LIDOCAINE 2% INJ 100 MG/5 ML SDV (FOR ANES.) As Ordered ONE; LR 1,000 ML IV SCH; MIDAZOLAM INJ 2 MG/2 ML VIAL (J2250) As Ordered ONE; MORPHINE 2 MG/ML 1ML SYRINGE IV PRN; NORCO, ANEXSIA 5/325MG TABLET (HYDROcodone/ACETAMINOPHEN) PO PRN; ONDANSETRON 4MG/2ML VIAL (J2405) IV PRN; PROPOFOL 200 MG/20 ML VIAL As Ordered ONE; TRAZO50TA PO; dexameTHASONE 4 MG/ML 1ML VIAL (J1100) As Ordered ONE; fentaNYL 100 MCG/2 ML INJECTION (J3010) As Ordered ONE
[2016-12-07 11:12] LABS: CONTROL LINE UCG INT CTR LINE PRESENT
--- NOTE | 2016-12-07 14:27 | RO ---
DATE OF PROCEDURE: 12/07/2016 PREOPERATIVE DIAGNOSIS: Left breast mass. POSTOPERATIVE DIAGNOSIS: Left breast mass. PROCEDURE: Excision of left breast mass. SURGEON: Pipo Vidales Jr., MD APPLICATION CHEMIST: ANESTHESIA: IV sedation plus local. ESTIMATED BLOOD LOSS: Minimal. FLUIDS: Crystalloid. BRIEF PROCEDURE SUMMARY: The patient was brought to the operating room and was given IV sedation. After adequate IV sedation, the patient was prepped and draped in the usual sterile fashion. Next, a the incision overlying the mass in the left breast at the 11 o'clock/12 o'clock position was made after infiltrating with local lidocaine/Marcaine mixture. The electrocautery was used cut through underlying subcutaneous tissue down to the mass itself. The mass was very well circumscribed and well encapsulated. This was removed with a combination of blunt and sharp dissection as well as electrocautery. Eventually, this was removed off the surrounding breast tissue itself, then off the underlying muscle fascia given that it was relatively deep within this area. The lesion was removed in its entirety. The area was copiously irrigated until clear. #3-0 Vicryl was used to approximate the dermis and #4-0 Vicryl was used to approximate the skin. Steri-Strips and a dry sterile dressing was applied. The patient was awakened from her sedation and brought to the recovery room awake, alert, and hemodynamically stable. Sponge and needle counts were correct times two.
[2016-12-07 16:10] VITALS: BP 112/64
== END | disposition home or self-care (01) ==
LOC: M SDC 10:41
PROVIDERS: ATTEND Surgery
DX: D24.2 Benign neoplasm of left breast (principal); F41.9 Anxiety disorder, unspecified; F32.9 Major depressive disorder, single episode, unspecified; F17.210 Nicotine dependence, cigarettes, uncomplicated; Z79.899 Other long term (current) drug therapy
CPT/HCPCS: 19120; 84703; 88305; J1100; J2250; J3010

== ENCOUNTER 2017-01-29 16:41 | Emergency (ER) | payer OTHER ==
[~2017-01-29] VITALS: Ht 157.5 cm; Wt 71.7 kg
[~2017-01-29 16:41] MED LIST changes: -BUPIVACAINE/EPIN 0.25% 30 ML VIAL As Ordered ONE; -KETOROLAC 30 MG/ML VIAL (J1885) IV SCH; -LIDOCAINE 1% SDV INJ 30 ML VIAL As Ordered ONE; -LIDOCAINE 2% INJ 100 MG/5 ML SDV (FOR ANES.) As Ordered ONE; -LR 1,000 ML IV SCH; -MIDAZOLAM INJ 2 MG/2 ML VIAL (J2250) As Ordered ONE; -MORPHINE 2 MG/ML 1ML SYRINGE IV PRN; -NORCO, ANEXSIA 5/325MG TABLET (HYDROcodone/ACETAMINOPHEN) PO PRN; -ONDANSETRON 4MG/2ML VIAL (J2405) IV PRN; -PROPOFOL 200 MG/20 ML VIAL As Ordered ONE; -dexameTHASONE 4 MG/ML 1ML VIAL (J1100) As Ordered ONE; -fentaNYL 100 MCG/2 ML INJECTION (J3010) As Ordered ONE
[2017-01-29 17:41] LABS: MEAN CORPUSCULAR HEMOGLOBIN 29.1 pg (27.0-33.0); MEAN CORPUSCULAR HGB CONC 34.4 g/dl (32.0-36.5); MEAN CORPUSCULAR VOLUME 84.6 fl (80.0-96.0); RED CELL DISTRIBUTION WIDTH 12.3 % (11.5-14.5); WHITE BLOOD COUNT 7.9 K/mm3 (4.0-10.0)
[2017-01-29 18:08] LABS: CONTROL LINE HCG INT CTR LINE PRESENT
[2017-01-29 18:12] LABS: ALBUMIN 4.2 GM/DL (3.2-5.2); ALKALINE PHOSPHATASE 72 U/L (45-117); ALT/SGPT 39 U/L (12-78); ANION GAP 7 MEQ/L (8-16); AST/SGOT 14 U/L (15-37); BILIRUBIN,DIRECT 0.1 MG/DL (0.0-0.2); BILIRUBIN,TOTAL 0.3 MG/DL (0.2-1.0); BLOOD UREA NITROGEN 9 MG/DL (7-18); CALCIUM LEVEL 8.7 MG/DL (8.5-10.1); CARBON DIOXIDE LEVEL 28 MEQ/L (21-32); CHLORIDE LEVEL 104 MEQ/L (98-107); CREATININE FOR GFR 0.52 MG/DL (0.55-1.02); GLOMERULAR FILTRATION RATE > 60.0 (>60); GLUCOSE, FASTING 89 MG/DL (70-105); POTASSIUM SERUM 3.9 MEQ/L (3.5-5.1); SODIUM LEVEL 139 MEQ/L (136-145); TOTAL PROTEIN 7.7 GM/DL (6.4-8.2)
[2017-01-29 18:40] LABS: METHADONE URINE NEGATIVE (NEGATIVE)
[2017-01-29 22:35] VITALS: BP 123/68
== END 2017-01-29 22:38 ==
LOC: M ED 17:20
DX: F33.9 Major depressive disorder, recurrent, unspecified (principal); F17.200 Nicotine dependence, unspecified, uncomplicated; Z91.018 Allergy to other foods; Z79.899 Other long term (current) drug therapy
CPT/HCPCS: 36415; 80048; 80076; 80306; 84443; 84703; 85027; 99285; G0480